=== PATIENT | male | born 2000 | race African-American/Black ===

== ENCOUNTER 2019-07-13 16:19 | Emergency (ER) | payer OTHER ==
[2019-07-13 16:35] VITALS: BP 146/75
[2019-07-13] MEDS ORDERED: CYCLOBENZAPRINE 10 MG TABLET PO STA (16:42)
[2019-07-13] MEDS ORDERED: IBUPROFEN 800 MG TABLET PO STA (16:42)
--- NOTE | 2019-07-13 16:44 | ED Physician Documentation ---
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 He felt some soreness in the left upper back and then started stretching it when it became severe. It is near the left scapula, nonradiating. There is no associated chest pain or trouble breathing. It hurts if he moves and is not too bad at rest. He is never had this before.) Review of Systems Constitutional: reports: Reviewed and negative Cardiac: reports: Reviewed and negative Respiratory: reports: Reviewed and negative PD PAST MEDICAL HISTORY - Present Medications Home Medications: Ambulatory Orders Medication Instructions Recorded Confirmed Cyclobenzaprine [Flexeril] 10 mg PO TID PRN #20 tablet 07/13/19 Ibuprofen [Motrin] 800 mg PO Q8H PRN #30 tablet 07/13/19 - Allergies Allergies/Adverse Reactions: Allergies Allergy/AdvReac Type Severity Reaction Status Date / Time No Known Drug Allergies Allergy Verified 07/13/19 16:35 PD ED PE NORMAL - Vitals Vital signs reviewed: Yes - General General: Alert and oriented X 3, No acute distress - HEENT HEENT: PERRL, EOMI - Neck Neck: Supple, no meningeal sign, No bony TTP - Cardiac Cardiac: RRR, No murmur - Respiratory Respiratory: No respiratory distress, Clear bilaterally, Other (He has significant and easily reproducible muscular spasm in the left parathoracic area medial to the scapula. There is also mild tenderness if I squeeze his ribs laterally.) - Abdomen Abdomen: Non tender - Extremities Extremities: No edema, No calf tenderness / cord - Neuro Neuro: Alert and oriented X 3, Normal speech Results - Vitals Vitals: Vital Signs - 24 hr 07/13/19 16:33 Temperature 36.4 C L Heart Rate 63 Respiratory 19 Rate Blood Pressure 146/75 H O2 Saturation 100 Oxygen O2 Source Room air PD MEDICAL DECISION MAKING - ED course ED course: This is a young man with muscle spasm of the back. It is easily reproducible matching his pain which clinically makes other more severe diagnoses such as PE, pneumonia, atypical angina, dissection etc. exceedingly unlikely. Departure - Departure Disposition: 01 Home, Self Care Clinical Impression: Back muscle spasm Condition: Good Record reviewed to determine appropriate education?: Yes Instructions: ED Spasm Back No Trauma Prescriptions: Cyclobenzaprine [Flexeril] 10 mg PO TID PRN #20 tablet PRN Reason: Spasms Ibuprofen [Motrin] 800 mg PO Q8H PRN #30 tablet PRN Reason: PAIN &/OR FEVER Comments: Return if worse or if not better in the next couple of days. Or if any new symptoms develop or worsen. [place] Forms: Activity restrictions
== END 2019-07-13 16:57 | disposition home or self-care (01) ==
LOC: ED 16:19
DX: M62.830 Muscle spasm of back (principal); M54.6 Pain in thoracic spine
CPT/HCPCS: 99282; 99284; A9270

== ENCOUNTER 2021-07-16 14:42 | Outpatient (CLI) | payer OTHER | END 2021-07-16 14:43 | disposition EMS.NT | LOC: EMS 14:42 | DX: R00.0 Tachycardia, unspecified (principal) ==

== ENCOUNTER 2021-07-16 15:41 | Emergency (ER) | payer OTHER ==
--- NOTE | 2021-07-16 15:44 | ED Physician Documentation ---
PD HPI DYSPNEA - Stated complaint Stated Complaint: ABNORMAL EKG - History obtained from History obtained from: Patient, EMS - History of Present Illness Timing - onset: Unknown Timing - onset during: Rest (he went to [facility] primary care clinic for eval to have wisdom teeth removed. Getting routine exam and was noted to have high BP and tachycardia 110-120. ECG done and reading of subtle T wave abnormal anterior. Sent to ER by EMS. Patient did not feel heart fast, so unknown duration. Denies CP, dyspnea.) Timing - details: Other (unknown duration, as was not having symptoms. Found incidental on PCP exam.) Inciting event(s): Other (has just couple caffeinated drinks daily. Denies diet pills, weight loss meds, work out supplements, nor energy drinks. Denies recra tional stimulants (bath salts, etc). No recent weight loss nor gain. Otherwise feeling well. No exertional CP nor dyspnea.). No: URI, Immobilization/travel Worsened by: No: Exertion, Laying flat Associated symptoms: No: Fever, Cough, Hemoptysis, Wheezing, Bilateral edema, Anxiety Similar symptoms before: Has not had sx before (has been told that BP is borderline high in the past but not needing Rx.) Review of Systems Constitutional: denies: Fever, Chills Nose: denies: Rhinorrhea / runny nose, Congestion Throat: denies: Sore throat Cardiac: denies: Chest pain / pressure, Palpitations, Pedal edema, Calf pain Respiratory: denies: Dyspnea, Cough, Wheezing GI: denies: Abdominal Pain, Nausea, Vomiting, Diarrhea Skin: denies: Rash, Lesions Psychiatric: denies: Anxiety Endocrine: denies: Weight loss, Weight gain PD PAST MEDICAL HISTORY - Past Medical History Cardiovascular: None Respiratory: None Neuro: None Endocrine/Autoimmune: None - Past Surgical History Past Surgical History: No - Present Medications Home Medications: Ambulatory Orders Medication Instructions Recorded Confirmed Metoprolol Succinate [Toprol Xl] 25 mg PO DAILY #10 tablet 07/16/21 Naproxen 250 mg PO TID #21 tablet 07/16/21 - Allergies Allergies/Adverse Reactions: Allergies Allergy/AdvReac Type Severity Reaction Status Date / Time No Known Drug Allergies Allergy Verified 07/13/19 16:35 - Living Situation Living Arrangement: reports: At home - Social History Does the pt smoke?: No Smoking Status: Never smoker Does the pt have substance abuse?: No PD ED PE NORMAL - Vitals Vital signs reviewed: Yes - General General: Alert and oriented X 3, No acute distress, Well developed/nourished - HEENT HEENT: Pharynx benign - Neck Neck: Supple, no meningeal sign, No adenopathy - Cardiac Cardiac: No murmur, No gallop, No rub. No: RRR (tachycardic but regular, and has some variability 105-120, so not appearing to be flutter. ) - Respiratory Respiratory: No respiratory distress, Clear bilaterally - Abdomen Abdomen: Soft, Non tender - Derm Derm: Normal color, Warm and dry - Extremities Extremities: No tenderness to palpate, Normal ROM s pain, No edema, No calf tenderness / cord Results - Vitals Vitals: Vital Signs - 24 hr 07/16/21 07/16/21 15:49 17:02 Temperature 37.0 C Heart Rate 116 H 98 Respiratory 17 16 Rate Blood Pressure 167/109 H 133/85 H O2 Saturation 98 99 Oxygen O2 Source Room air - EKG (time done) on presentation Rhythm: Sinus tachycardia. No: Atrial flutter [place]: Normal Intervals: Normal ND Ischemia: Normal ST segments, ST elevation c/w repol (there is mild/subtle ST elevation V2-3 but not significant. No diffuse changes. ). No: ST elevation c/w ischemia, ST depression - Labs Labs: Laboratory Tests 07/16/21 07/16/21 07/16/21 16:11 16:11 16:11 WBC 5.6 RBC 4.61 L Hgb 15.2 Hct 44.4 MCV 96.3 H MCH 33.0 H MCHC 34.2 RDW 13.0 Plt Count 214 MPV 10.9 Neut # (Auto) 3.0 Lymph # (Auto) 1.8 Ev[place]eline # (Auto) 0.6 Eos # (Auto) 0.3 Baso # (Auto) 0.1 Absolute Nucleated RBC 0.00 Nucleated RBC % 0.0 Sodium 135 Potassium 3.7 Chloride 95 L Carbon Dioxide 30 Anion Gap 10.0 BUN 15 Creatinine 1.0 Estimated GFR (MDRD) 112 Glucose 313 H Calcium 9.8 Total Bilirubin 0.5 AST 156 H ALT 246 H Alkaline Phosphatase 118 Troponin I High Sens C-Reactive Protein 2.5 H B-Natriuretic Peptide 18 Total Protein 7.9 Albumin 4.0 Globulin 3.9 Albumin/Globulin Ratio 1.0 Lipase 31 TSH 07/16/21 07/16/21 16:11 16:11 WBC RBC Hgb Hct MCV MCH MCHC RDW Plt Count MPV Neut # (Auto) Lymph # (Auto) Evangeline # (Auto) Eos # (Auto) Baso # (Auto) Absolute Nucleated RBC Nucleated RBC % Sodium Potassium Chloride Carbon Dioxide Anion Gap BUN Creatinine Estimated GFR (MDRD) Glucose Calcium Total Bilirubin AST ALT Alkaline Phosphatase Troponin I High Sens 6.3 C-Reactive Protein B-Natriuretic Peptide Total Protein Albumin Globulin Albumin/Globulin Ratio Lipase TSH 3.54 - Rads (name of study) chest xray Radiology: Prelim report reviewed (no acute changes.), See rad report PD MEDICAL DECISION MAKING - ED course Complexity details: re-evaluated patient (labs good. I had given dose of Metoprolol for heart rate and BP. Both are improved reasonably. Not clear the cause. Can give NSAIDs considering pericarditis (tachycardia and subtle ECG changes) and beta kyle for symptoms. Short term Rx and f/u PCP. ), considered differential (initially could feel heart beats by palpating chest. So seemed hyperdynamic. consider stimulant use (caffeine), hyperthyroid, etc. But also consider mild pericarditis (worse with effusion I think would be hypodynamic, and same for myocarditis). Can check labs. ), d/w patient Departure - Departure Disposition: 01 Home, Self Care Clinical Impression: Atrial tachycardia determined by electrocardiography, Elevated blood pressure reading Condition: Stable Record reviewed to determine appropriate education?: Yes Follow-Up: [facility] [Provider Group] Prescriptions: Naproxen 250 mg PO TID #21 tablet Metoprolol Succinate [Toprol Xl] 25 mg PO DAILY #10 tablet Comments: Your EKG did show the fast heart rate with some mild irregularity of the T waves. It does not look like a injury pattern of the heart and your blood test did not show any signs of heart muscle injury. The rest of your blood tests are good without any signs of anemia, diabetes, thyroid disorder, electrolyte abnormality. Considerations could still be some mild inflammation around the heart called pericarditis which can lead to the fast heart rate though typically associated with chest pain or shortness of breath, which you do not have. Stimulants such as caffeine can cause the heart rate to be fast or 2. Decrease the amount of caffeine that you take, though it does not sound like you having excessive amount per se. [place] for recheck of your blood pressure and heart rate. I would suggest that they set you up with an outpatient ultrasound of the heart called an echocardiogram to evaluate heart valves etc. Return to the ER if you have chest pain, shortness of breath, lightheadedness, fever or other concerns. Light duty and activity for the next 2 days until follow-up. Forms: Activity restrictions Discharge Date/Time: 07/16/21 17:57
[2021-07-16] MEDS ORDERED: METOPROLOL 5 MG/5 ML VIAL IVP STA (16:03)
[2021-07-16 16:19] LABS: BASOPHILS # (AUTO) 0.1 10^3/uL (0.0-0.1); BASOPHILS % (AUTO) 0.9 %; EOSINOPHILS # (AUTO) 0.3 10^3/uL (0.0-0.7); EOSINOPHILS % (AUTO) 4.6 %; HCT - HEMATOCRIT 44.4 % (42.0-52.0); HGB - HEMOGLOBIN 15.2 g/dL (14.0-18.0); LYMPHOCYTES # (AUTO) 1.8 10^3/uL (1.5-3.5); LYMPHOCYTES % (AUTO) 31.5 %; MEAN CORPUSCULAR HGB CONC 34.2 g/dL (32.0-36.0); MEAN CORPUSCULAR VOLUME 96.3 fL (80.0-94.0); MEAN PLATELET VOLUME 10.9 fL (7.4-11.4); MONOCYTES # (AUTO) 0.6 10^3/uL (0.0-1.0); MONOCYTES % (AUTO) 9.8 %; NEUTROPHILS % (AUTO) 52.8 %; PLT - PLATELET COUNT 214 10^3/uL (130-450); RED BLOOD COUNT 4.61 10^6/uL (4.70-6.10); WHITE BLOOD COUNT 5.6 x10^3/uL (4.8-10.8)
--- NOTE | 2021-07-16 16:20 | XRAY Report ---
PROCEDURE: Chest 1 View X-Ray INDICATIONS: Chest Pain TECHNIQUE: One view of the chest was acquired. COMPARISON: None FINDINGS: Surgical changes and devices: None. Lungs and pleura: No pleural effusions or pneumothorax. Lungs are clear. Mediastinum: Mediastinal contours appear normal. Heart size is normal. Bones and chest wall: No suspicious bony lesions. Overlying soft tissues appear unremarkable. IMPRESSION: No acute cardiopulmonary pathology. Reviewed by: Bennie Sanchez MD on 07/16/2021 4:19 PM PDT Approved by: Bennie Sanchez MD on 07/16/2021 4:19 PM PDT Station ID: [id number]
[2021-07-16 16:36] LABS: BILIRUBIN,TOTAL 0.5 mg/dL (0.2-1.0); CALCIUM 9.8 mg/dL (8.5-10.3); CRP - C-REACTIVE PROTEIN 2.5 mg/dL (0-1.0); POTASSIUM 3.7 mmol/L (3.5-5.0); TOTAL PROTEIN 7.9 g/dL (6.7-8.2)
[2021-07-16 17:06] VITALS: BP 133/85
[2021-07-16] MEDS ORDERED: IBUPROFEN 600 MG TABLET PO STA (17:38)
== END 2021-07-16 17:57 | disposition home or self-care (01) ==
LOC: ED 15:41
DX: I47.1 Supraventricular tachycardia (principal); R03.0 Elevated blood-pressure reading, without diagnosis of hypertension
CPT/HCPCS: 36415; 71045; 80053; 83690; 83880; 84443; 84484; 85025; 86140; 93005; 96374; 99284; A9270

== ENCOUNTER 2021-08-03 13:13 | Inpatient (IN) | payer OTHER ==
--- NOTE | 2021-08-03 13:55 | XRAY Report ---
PROCEDURE: Chest 1 View X-Ray INDICATIONS: Chest Pain TECHNIQUE: One view of the chest was acquired. COMPARISON: CXR 07/16/2021. FINDINGS: Surgical changes and devices: None. Lungs and pleura: No pleural effusions or pneumothorax. Lungs are clear. Mediastinum: Mediastinal contours appear normal. Heart size is normal. Bones and chest wall: No suspicious bony lesions. Overlying soft tissues appear unremarkable. IMPRESSION: No acute cardiopulmonary abnormality. Reviewed by: Dennis Allan MD on 08/03/2021 12:54 PM VINNY Approved by: Dennis Allan MD on 08/03/2021 12:54 PM VINNY Station ID: [id number]
[2021-08-03 14:25] LABS: BASOPHILS # (AUTO) 0.1 10^3/uL (0.0-0.1); BASOPHILS % (AUTO) 1.2 %; EOSINOPHILS % (AUTO) 0.6 %; HCT - HEMATOCRIT 47.3 % (42.0-52.0); HGB - HEMOGLOBIN 16.7 g/dL (14.0-18.0); LYMPHOCYTES # (AUTO) 2.5 10^3/uL (1.5-3.5); LYMPHOCYTES % (AUTO) 34.5 %; MEAN CORPUSCULAR HEMOGLOBIN 32.2 pg (27.0-31.0); MEAN CORPUSCULAR HGB CONC 35.3 g/dL (32.0-36.0); MEAN CORPUSCULAR VOLUME 91.3 fL (80.0-94.0); MEAN PLATELET VOLUME 12.2 fL (7.4-11.4); MONOCYTES # (AUTO) 0.4 10^3/uL (0.0-1.0); MONOCYTES % (AUTO) 4.8 %; NEUTROPHILS # (AUTO) 4.3 10^3/uL (1.5-6.6); NEUTROPHILS % (AUTO) 58.6 %; PLT - PLATELET COUNT 351 10^3/uL (130-450); RED BLOOD COUNT 5.18 10^6/uL (4.70-6.10); RED CELL DISTRIBUTION WIDTH 12.1 % (12.0-15.0); WHITE BLOOD COUNT 7.3 x10^3/uL (4.8-10.8)
[2021-08-03 14:39] LABS: ALBUMIN 4.9 g/dL (3.2-5.5); ALBUMIN/GLOBULIN RATIO 1.3 (1.0-2.2); BILIRUBIN,TOTAL 0.9 mg/dL (0.2-1.0); CALCIUM 9.8 mg/dL (8.5-10.3); CREATININE 1.5 mg/dL (0.6-1.2); POTASSIUM 5.6 mmol/L (3.5-5.0); TOTAL PROTEIN 8.8 g/dL (6.7-8.2)
[2021-08-03] MEDS ORDERED: SODIUM CHLORIDE 0.9% 1,000 ML IV STA (14:47)
[2021-08-03] MEDS ORDERED: INSULIN REGULAR HUMAN 300 UNIT/3 ML VIAL IVP ONE (14:47)
[2021-08-03] MEDS ORDERED: INSULIN REGULAR HUMAN 100 UNIT/1 ML 10 ML MDV IVP STA (14:50)
--- NOTE | 2021-08-03 15:09 | ED Physician Documentation ---
History of Present Illness - Stated complaint Stated Complaint: SOA,FATIGUE - Chief complaint Chief Complaint: General - History obtained from History obtained from: Patient - Additonal information Additional information: Patient comes emergency department chief complaint of fatigue, nausea, polydipsia and polyuria For about the last 2 weeks. Patient was seen in our department at the end of June for a sense of pounding heart and was diagnosed with hypertension. He states that since then, he has just felt increasingly fatigued. It does appear that at that time his sugar was 313, but we do not have any prior records to compare. No history of diabetes personally, and patient states that only his grandma has diabetes that he knows of. No fevers or chills. No shortness of breath or chest pain. No other complaints at this time. Review of Systems Ten Systems: 10 systems reviewed and negative Constitutional: reports: Fatigue, Weight Loss (24 pounds in last 2 weeks). denies: Fever, Chills Eyes: reports: Reviewed and negative Ears: reports: Reviewed and negative Nose: reports: Reviewed and negative Throat: reports: Reviewed and negative Cardiac: reports: Palpitations Respiratory: reports: Reviewed and negative GI: reports: Nausea : reports: Reviewed and negative Skin: reports: Reviewed and negative Musculoskeletal: reports: Reviewed and negative Neurologic: reports: Reviewed and negative Psychiatric: reports: Reviewed and negative Endocrine: reports: Reviewed and negative Immunocompromised: reports: Reviewed and negative PD PAST MEDICAL HISTORY - Past Medical History Cardiovascular: None Respiratory: None Neuro: None Endocrine/Autoimmune: None - Past Surgical History Past Surgical History: No - Present Medications Home Medications: Ambulatory Orders Medication Instructions Recorded Confirmed Lisinopril [Zestril] 10 mg PO DAILY 08/04/21 08/04/21 - Allergies Allergies/Adverse Reactions: Allergies Allergy/AdvReac Type Severity Reaction Status Date / Time No Known Drug Allergies Allergy Verified 08/03/21 13:19 - Social History Does the pt smoke?: No Smoking Status: Never smoker Does the pt have substance abuse?: No PD ED PE NORMAL - Vitals Vital signs reviewed: Yes - General General: Alert and oriented X 3, No acute distress, Well developed/nourished, Other (Patient appears moderately uncomfortable but otherwise no apparent distress.) - HEENT HEENT: Atraumatic, PERRL, EOMI, Moist mucous membranes - Neck Neck: Supple, no meningeal sign - Cardiac Cardiac: No murmur, Strong equal pulses, Other (Tachycardic, regular rhythm.) - Respiratory Respiratory: No respiratory distress, Clear bilaterally - Abdomen Abdomen: Soft, Non tender, Non distended - Derm Derm: Normal color, Warm and dry, No rash - Extremities Extremities: No deformity, No edema - Neuro Neuro: Alert and oriented X 3, labor and delivery nurse 2-12 intact, Normal speech - Psych Psych: Normal mood, Normal affect Results - Vitals Vitals: Oxygen O2 Source Room air - Labs Labs: Laboratory Tests 08/03/21 08/03/21 08/03/21 14:16 14:16 14:16 WBC 7.3 RBC 5.18 Hgb 16.7 Hct 47.3 MCV 91.3 MCH 32.2 H MCHC 35.3 RDW 12.1 Plt Count 351 MPV 12.2 H Neut # (Auto) 4.3 Lymph # (Auto) 2.5 [place] # (Auto) 0.4 Eos # (Auto) 0.0 Baso # (Auto) 0.1 Absolute Nucleated RBC 0.00 Nucleated RBC % 0.0 VBG pH VBG pCO2 VBG pO2 VBG HCO3 VBG Total CO2 VBG O2 Saturation VBG Base Excess Sodium 121 L Potassium 5.6 H Chloride 83 L Carbon Dioxide 17 L Anion Gap 21.0 H BUN 23 H Creatinine 1.5 H Estimated GFR (MDRD) 70 L Glucose 769 H* Estimat Average Glucose Hemoglobin A1c % Calcium 9.8 Total Bilirubin 0.9 AST 49 H ALT 117 H Alkaline Phosphatase 122 H Troponin I High Sens 6.8 B-Natriuretic Peptide Total Protein 8.8 H Albumin 4.9 Globulin 3.9 Albumin/Globulin Ratio 1.3 Lipase 46 Urine Color Urine Clarity Urine pH Ur Specific [place] Urine Protein Urine Glucose (UA) Urine Ketones Urine Occult Blood Urine Nitrite Urine Bilirubin Urine Urobilinogen Ur Leukocyte Esterase Urine RBC Urine WBC Ur Squamous Epith Cells Urine Bacteria Ur Microscopic Review Urine Culture Comments Urine Opiates Screen Ur Oxycodone Screen Urine Methadone Screen Ur Propoxyphene Screen Ur Barbiturates Screen Ur Tricyclics Screen Ur Phencyclidine Scrn Ur Amphetamine Screen U Methamphetamines Scrn U Benzodiazepines Scrn Urine Cocaine Screen U Cannabinoids Screen Serum Ketones 08/03/21 08/03/21 08/03/21 14:16 14:16 14:16 WBC RBC Hgb Hct MCV MCH MCHC RDW Plt Count MPV Neut # (Auto) Lymph # (Auto) [place] # (Auto) Eos # (Auto) Baso # (Auto) Absolute Nucleated RBC Nucleated RBC % VBG pH VBG pCO2 VBG pO2 VBG HCO3 VBG Total CO2 VBG O2 Saturation VBG Base Excess Sodium Potassium Chloride Carbon Dioxide Anion Gap BUN Creatinine Estimated GFR (MDRD) Glucose Estimat Average Glucose 298 H Hemoglobin A1c % 12.0 H Calcium Total Bilirubin AST ALT Alkaline Phosphatase Troponin I High Sens B-Natriuretic Peptide 24 Total Protein Albumin Globulin Albumin/Globulin Ratio Lipase Urine Color Urine Clarity Urine pH Ur Specific [place] Urine Protein Urine Glucose (UA) Urine Ketones Urine Occult Blood Urine Nitrite Urine Bilirubin Urine Urobilinogen Ur Leukocyte Esterase Urine RBC Urine WBC Ur Squamous Epith Cells Urine Bacteria Ur Microscopic Review Urine Culture Comments Urine Opiates Screen Ur Oxycodone Screen Urine Methadone Screen Ur Propoxyphene Screen Ur Barbiturates Screen Ur Tricyclics Screen Ur Phencyclidine Scrn Ur Amphetamine Screen U Methamphetamines Scrn U Benzodiazepines Scrn Urine Cocaine Screen U Cannabinoids Screen Serum Ketones SMALL H 08/03/21 08/03/21 15:25 15:30 WBC RBC Hgb Hct MCV MCH MCHC RDW Plt Count MPV Neut # (Auto) Lymph # (Auto) [place] # (Auto) Eos # (Auto) Baso # (Auto) Absolute Nucleated RBC Nucleated RBC % VBG pH 7.230 L VBG pCO2 42.9 VBG pO2 35.8 VBG HCO3 17.6 L VBG Total CO2 18.9 L VBG O2 Saturation 62.8 VBG Base Excess -9.7 L Sodium Potassium Chloride Carbon Dioxide Anion Gap BUN Creatinine Estimated GFR (MDRD) Glucose Estimat Average Glucose Hemoglobin A1c % Calcium Total Bilirubin AST ALT Alkaline Phosphatase Troponin I High Sens B-Natriuretic Peptide Total Protein Albumin Globulin Albumin/Globulin Ratio Lipase Urine Color YELLOW Urine Clarity CLEAR Urine pH 5.5 Ur Specific [place] 1.010 Urine Protein 30 H Urine Glucose (UA) >=1000 H Urine Ketones 15 H Urine Occult Blood MODERATE H Urine Nitrite NEGATIVE Urine Bilirubin NEGATIVE Urine Urobilinogen 0.2 (NORMAL) Ur Leukocyte Esterase NEGATIVE Urine RBC 0-5 Urine WBC 0-3 Ur Squamous Epith Cells NONE SEEN Urine Bacteria None Seen Ur Microscopic Review INDICATED Urine Culture Comments NOT INDICATED Urine Opiates Screen NEGATIVE Ur Oxycodone Screen NEGATIVE Urine Methadone Screen NEGATIVE Ur Propoxyphene Screen NEGATIVE Ur Barbiturates Screen NEGATIVE Ur Tricyclics Screen NEGATIVE Ur Phencyclidine Scrn NEGATIVE Ur Amphetamine Screen NEGATIVE U Methamphetamines Scrn NEGATIVE U Benzodiazepines Scrn NEGATIVE Urine Cocaine Screen NEGATIVE U Cannabinoids Screen NEGATIVE Serum Ketones Procedures - General procedure General procedure: Peripheral IV placed via ultrasound by ED. PD MEDICAL DECISION MAKING - ED course Complexity details: reviewed results, re-evaluated patient, considered differential, d/w patient ED course: The patient was worked up with labs, and found to have a blood sugar of 769. His potassium was 5.0. Anion gap was 21. Patient was started on IV fluids and an insulin drip. I spoke with Dr. Grissom, who did agree to an inpatient to her service. - Critical Care Time(min): 30 Comments: Critical care time was necessary, due to acute metabolic emergency in the form of diabetic ketoacidosis, and severe hyperglycemia, to prevent imminent and life-threatening decline. Time Includes: Direct patient care, Review records, Reassess patient, Document care, Coordinate care, Medical consult, See progress note Data interpretation: Labs, ABG, Cardiac output, See progress note Procedures included in critical care time: Peripheral IV, See progress note Departure - Departure Disposition: 66 [facility] DC/Xfer Clinical Impression: Diabetes mellitus, new onset Diabetic ketoacidosis Qualifiers: Diabetes mellitus type: type 1 Diabetes mellitus complication detail: without coma Qualified Code(s): E10.10 - Type 1 diabetes mellitus with ketoacidosis without coma Condition: Critical Discharge Date/Time: 08/03/21 18:20
[2021-08-03] MEDS ORDERED: INSULIN REGULAR HUMAN 100 UNIT in SODIUM CHLORIDE 0.9% 100ML 99 ML IV STA ×2 (15:37→15:43)
[2021-08-03 15:41] LABS: VBG BASE EXCESS -9.7 mmol/L (-2 - +2); VBG HCO3 17.6 mmol/L (23-28); VBG OXYGEN SATURATION 62.8 % (60-80); VBG PCO2 42.9 mmHg (41-51); VBG PH 7.23 (7.31-7.41); VBG PO2 35.8 mmHg (25-47); VBG TOTAL CO2 18.9 mmol/L (24-29)
[2021-08-03] MEDS ORDERED: ACETAMINOPHEN 325 MG TABLET PO PRN (16:02)
[2021-08-03] MEDS ORDERED: PROCHLORPERAZINE 10 MG/2 ML VIAL IVP PRN (16:02)
[2021-08-03] MEDS ORDERED: ONDANSETRON ODT 4 MG TABLET TL PRN (16:02)
[2021-08-03] MEDS ORDERED: SODIUM CHLORIDE FLUSH 0.9% 10 ML SYRINGE IVP PRN (16:02)
--- NOTE | 2021-08-03 16:12 | HISTORY & PHYSICAL EXAMINATION ---
Chief Complaint - Chief Complaint Chief Complaint: Polydypsia, polyuria, weight loss History of Present Illness - Admitted From Admitted From:: ED - History Obtained From History obtained from: ED provider and the patient - History of Present Illness HPI Comment/Other: This is a 21-year-old black male who has a history of recently diagnosed hypertension when he presented to the ED complaining of "strong palpitations", one month ago. At that time serum glucose level was noted to be 313 on lab work. Patient has subsequently had 2 weeks of polyuria, polydipsia, fatigue, claims he has a 24 pound weight loss and because of feeling overall poor he presented to the ED today. He is found to have serum glucose of 679, pH of 7.2, positive serum ketones, elevated anion gap and is being admitted to the ICU for DKA and new onset Type 1 diabetes. History - Past Medical History Cardiovascular: reports: Hypertension (Dx 1 mo ago, he is on Metoprolol) Respiratory: reports: None Neuro: reports: None Endocrine/Autoimmune: reports: None MRSA Hx?: No - Family & Social History Living arrangement: At home Meds/Allgy - Home Medications Home Medications: Ambulatory Orders Medication Instructions Recorded Confirmed Metoprolol Succinate [Toprol Xl] 25 mg PO DAILY #10 tablet 07/16/21 Naproxen 250 mg PO TID #21 tablet 07/16/21 - Allergies Allergies/Adverse Reactions: Allergies Allergy/AdvReac Type Severity Reaction Status Date / Time No Known Drug Allergies Allergy Verified 08/03/21 13:19 Review of Systems - Constitutional Constitutional: reports: Weight loss (24 lbs in 2 weeks) - Gastrointestinal Gastrointestinal: reports: Nausea - All Other Systems All Other Systems: reports: Reviewed and negative Exam - Vital Signs Vital Signs: Vital Signs x48h Temp Pulse Resp BP Pulse Ox 08/03/21 13:19 36.5 C 110 H 16 170/100 H 98 Conclusion/Plan - Problem List (1) Diabetic ketoacidosis Qualifiers: Diabetes mellitus type: type 1 Diabetes mellitus complication detail: without coma Qualified Code(s): E10.10 - Type 1 diabetes mellitus with ketoacidosis without coma - Lab Results Fish Bones: 08/03/21 14:16 08/03/21 14:16
[2021-08-03 16:19] LABS: MUDS CUTOFF CONCENTRATIONS CUTOFF CONC BELOW:
[2021-08-03 16:21] LABS: BILIRUBIN,URINE NEGATIVE (NEGATIVE); GLUCOSE, URINE (UA) >=1000 mg/dL (NEGATIVE); KETONES,URINE (UA) 15 mg/dL (NEGATIVE); LEUKOCYTE ESTERASE, URINE NEGATIVE (NEGATIVE); NITRITE,URINE NEGATIVE (NEGATIVE); OCCULT BLOOD,URINE MODERATE (NEGATIVE); PH,URINE 5.5 PH (5.0-7.5); PROTEIN,URINE 30 mg/dL (NEGATIVE); UROBILINOGEN,URINE 0.2 (NORMAL) E.U./dL (NORMAL)
[2021-08-03 16:23] LABS: CLARITY,URINE CLEAR (CLEAR)
[2021-08-03 16:26] LABS: VBG BASE EXCESS -9.3 mmol/L (-2 - +2); VBG HCO3 17.8 mmol/L (23-28); VBG OXYGEN SATURATION 42.5 % (60-80); VBG PCO2 42.9 mmHg (41-51); VBG PH 7.236 (7.31-7.41); VBG PO2 25.6 mmHg (25-47); VBG TOTAL CO2 19.1 mmol/L (24-29)
[2021-08-03 16:30] LABS: BACTERIA,URINE None Seen /HPF (None Seen); RBC,URINE 0-5 /HPF (0-5); SQUAMOUS EPITHELIAL CELL,UR NONE SEEN (<= Few); WBC,URINE 0-3 /HPF (0-3)
[2021-08-03 16:31] LABS: AMPHETAMINE SCREEN,URINE NEGATIVE (NEGATIVE); BARBITURATE SCREEN,UR NEGATIVE (NEGATIVE); BENZODIAZEPINES SCREEN, URINE NEGATIVE (NEGATIVE); COCAINE SCREEN URINE NEGATIVE (NEGATIVE); METHADONE SCREEN, URINE NEGATIVE (NEGATIVE); METHAMPHETAMINES SCREEN, URINE NEGATIVE (NEGATIVE); OPIATE SCREEN, URINE NEGATIVE (NEGATIVE); OXYCODONE SCREEN, URINE NEGATIVE (NEGATIVE); PROPOXYPHENE SCREEN, URINE NEGATIVE (NEGATIVE); THC CANNABINOID SCREEN, URINE NEGATIVE (NEGATIVE); TRICYCLIC ANTIDEPRESSANT,URINE NEGATIVE (NEGATIVE)
[2021-08-03 16:32] LABS: KETONES, SERUM (ACETEST) SMALL (NEGATIVE)
[2021-08-03 16:52] LABS: BUN - BLOOD UREA NITROGEN 25 mg/dL (6-20); CALCIUM 10.1 mg/dL (8.5-10.3); CARBON DIOXIDE - CO2 19 mmol/L (21-32); CHLORIDE 88 mmol/L (101-111); CREATININE 1.5 mg/dL (0.6-1.2); ETOH - ETHANOL < 5.0 mg/dL; GFR - MDRD 70 (>89); MAGNESIUM 2.6 mg/dL (1.7-2.8); POTASSIUM 4.9 mmol/L (3.5-5.0); SODIUM 127 mmol/L (135-145)
[2021-08-03 16:54] LABS: GLUCOSE 610 mg/dL (70-100)
[2021-08-03 17:29] LABS: KETONES, SERUM (ACETEST) SMALL (NEGATIVE)
[2021-08-03 17:30] LABS: B. PARAPERTUSSIS- RESP PCR PAN NOT DETECTED; B. PERTUSSIS- RESP PCR PANEL NOT DETECTED; C. PNEUMONIAE- RESP PCR PANEL NOT DETECTED; CORONAVIRUS 229E-RESP PCR NOT DETECTED; CORONAVIRUS HKU1-RESP PCR NOT DETECTED; CORONAVIRUS NL63-RESP PCR NOT DETECTED; CORONAVIRUS OC43-RESP PCR NOT DETECTED; HUMAN METAPNEUMOVIRUS NOT DETECTED; INFLUENZA A- RESP PCR PANEL NOT DETECTED; INFLUENZA B - RESP PCR PANEL NOT DETECTED; M. PNEUMONIAE- RESP PCR PANEL NOT DETECTED; PARAINFLUENZA VIRUS 1 NOT DETECTED; PARAINFLUENZA VIRUS 2 NOT DETECTED; PARAINFLUENZA VIRUS 3 NOT DETECTED; PARAINFLUENZA VIRUS 4 NOT DETECTED; RHINOVIRUS/ENTEROVIRUS NOT DETECTED; RSV- RESP PCR PANEL NOT DETECTED; SARS-CoV-2 -RESP PCR PANEL NOT DETECTED
[2021-08-03 17:33] LABS: BUN - BLOOD UREA NITROGEN 22 mg/dL (6-20); CALCIUM 9.6 mg/dL (8.5-10.3); CARBON DIOXIDE - CO2 19 mmol/L (21-32); CHLORIDE 92 mmol/L (101-111); CREATININE 1.5 mg/dL (0.6-1.2); GFR - MDRD 70 (>89); GLUCOSE 442 mg/dL (70-100); MAGNESIUM 2.5 mg/dL (1.7-2.8); POTASSIUM 3.9 mmol/L (3.5-5.0); SODIUM 129 mmol/L (135-145)
[2021-08-03] MEDS: SODIUM CHLORIDE 0.9% 1,000 ML IV SCH ×2 (17:56→22:57)
[2021-08-03 18:18] LABS: VBG BASE EXCESS -8.5 mmol/L (-2 - +2); VBG HCO3 18.1 mmol/L (23-28); VBG OXYGEN SATURATION 52.5 % (60-80); VBG PCO2 41.1 mmHg (41-51); VBG PH 7.261 (7.31-7.41); VBG PO2 29.9 mmHg (25-47); VBG TOTAL CO2 19.3 mmol/L (24-29)
--- NOTE | 2021-08-03 18:23 | ED Physician Documentation ---
ED Addendum - Addendum Addendum: 08/03/21 18:22 EKG performed at 1809. Rate 115, sinus tachycardia, normal CO interval. Normal QRS. LVH. Nonspecific T wave changes.
[2021-08-03 18:27] LABS: CALCIUM 9.6 mg/dL (8.5-10.3); CREATININE 1.4 mg/dL (0.6-1.2); POTASSIUM 3.6 mmol/L (3.5-5.0)
[2021-08-03 19:30] LABS: KETONES, SERUM (ACETEST) NEGATIVE (NEGATIVE)
[2021-08-03 19:33] LABS: BUN - BLOOD UREA NITROGEN 21 mg/dL (6-20); CALCIUM 9.5 mg/dL (8.5-10.3); CARBON DIOXIDE - CO2 20 mmol/L (21-32); CHLORIDE 94 mmol/L (101-111); CREATININE 1.3 mg/dL (0.6-1.2); GFR - MDRD 83 (>89); GLUCOSE 302 mg/dL (70-100); MAGNESIUM 2.4 mg/dL (1.7-2.8); POTASSIUM 3.4 mmol/L (3.5-5.0); SODIUM 132 mmol/L (135-145)
[2021-08-03] MEDS ORDERED: amLODIPine 5 MG TABLET PO SCH ×2 (19:45→21:00)
[2021-08-03] MEDS: INSULIN REGULAR HUMAN 100 UNIT in SODIUM CHLORIDE 0.9% 100ML 99 ML IV SCH ×2 (19:54→23:44)
[2021-08-03 20:33] LABS: ESTIMATED AVERAGE GLUCOSE 298 mg/dL (70-100)
[2021-08-03] MEDS ORDERED: amLODIPine 5 MG TABLET ONE (20:54)
[2021-08-03] MEDS ORDERED: POTASSIUM CHLOR 10 MEQ/100 ML 20 MEQ/200 ML BAG IV ONE (20:54)
[2021-08-03] MEDS: FAMOTIDINE 20 MG/2 ML VIAL IVP SCH (20:55)
[2021-08-03] MEDS: POTASSIUM CHLOR 10 MEQ/100 ML 10 MEQ/100 ML BAG IV SCH ×2 (20:56→22:01)
[2021-08-03] MEDS ORDERED: amLODIPine 5 MG TABLET PO ONE (21:00)
--- NOTE | 2021-08-03 21:46 | HISTORY & PHYSICAL EXAMINATION ---
History and Physical - History and Physical Chief complaint: Multiple complaints including weakness, polyuria, polydipsia, weight loss Source of history: Patient provided history. In addition, medical records reviewed. History of present illness: Mr. Coronel is a 21-year-old black male with no significant past medical history except for recently diagnosed hypertension. He had an ER visit on July 16, 2021 at which time he was seen for palpitations and was evaluated for abnormal EKG. The context was that he had a dental procedure, in the office he was found hypertensive and tachycardic, therefore he was sent to the ER for evaluation. At the ER his EKG had nonspecific changes, not suggestive of cardiac ischemia. He however was found tachycardic therefore was given metoprolol and for the presumed diagnosis of pericarditis he was also given NSAID. Was recommended close outpatient follow-up and cardiDuring that visit blood glucose was around 300 but there was no other significant laboratory abnormality. Subsequently the patient followed up at the [facility]; for hypertension he was started on lisinopril. No further work-up, lab work or cardiac testing was ordered or planned. The patient presented back to the ER on the morning of August 03 complaining of generalized weakness/fatigue to the point that he had difficulty ambulating, developed dyspnea on exertion. He reported being thirsty all the time and drinking at least a gallon of water; he also complained of polyuria and weight loss. He lost about 20 pounds during the past 2 weeks. Occasionally he was nauseous and had a few episodes of emesis. At the ER he was found tachycardic and hypertensive. Work-up was consistent with severe hyperglycemia and diabetic ketoacidosis. Past medical history: Recently diagnosed hypertension for which lisinopril was started as outpatient Outpatient medications: Lisinopril 20 mg daily Allergies Allergy/AdvReac Type Severity Reaction Status Date / Time No Known Drug Allergies Allergy Verified 08/03/21 13:19 Family history: Grandmother had type 2 diabetes, no history of type 1 diabetes in first-degree family members. Patient does not recall chronic medical illnesses in first-degree family members. Social history and functional status: Patient is in the [employer], active duty. He is a fully functional adult. He sometimes vapes, does not smoke regularly. He denies drug use. CODE STATUS: Full code Review of symptoms: 12 point review done, pertinent positives and negatives listed above at history present illness, there was no additional positive. Vital Signs - 24 hr 08/03/21 08/03/21 08/03/21 13:19 16:33 17:57 Temperature 36.5 C Heart Rate 110 H 110 H 116 H Heart Rate [ Monitoring electrodes] Respiratory 16 19 20 Rate Blood Pressure 170/100 H 134/72 H 127/91 H Blood Pressure [Left Brachial artery] O2 Saturation 98 95 99 08/03/21 08/03/21 08/03/21 18:38 19:00 21:00 Temperature Heart Rate Heart Rate [ 130 H 106 H 114 H Monitoring electrodes] Respiratory 17 19 20 Rate Blood Pressure Blood Pressure 148/106 H 159/113 H 136/111 H [Left Brachial artery] O2 Saturation 97 100 93 Physical exam: General: The patient is a well-developed young male, with sweet acetone smell of his breath. Not in distress. Respiratory: No increased work of breathing, clear to auscultation bilaterally without wheezes or crackles. CVS: S1, S2, Regular tachycardia, no murmur rub or gallop. Abdomen: Benign abdomen, bowel tones present, nontender, nondistended. Neurologic: Alert, oriented; no focal lateralizing sign. Psych: Cooperative. Lymph: No pitting pedal edema. Skin: No pallor. Musculoskeltal: Without trauma. Laboratory Tests 08/03/21 08/03/21 08/03/21 14:16 14:16 14:16 WBC 7.3 RBC 5.18 Hgb 16.7 Hct 47.3 MCV 91.3 MCH 32.2 H MCHC 35.3 RDW 12.1 Plt Count 351 MPV 12.2 H Neut # (Auto) 4.3 Lymph # (Auto) 2.5 [place] # (Auto) 0.4 Eos # (Auto) 0.0 Baso # (Auto) 0.1 Absolute Nucleated RBC 0.00 Nucleated RBC % 0.0 VBG pH VBG pCO2 VBG pO2 VBG HCO3 VBG Total CO2 VBG O2 Saturation VBG Base Excess Sodium 121 L Potassium 5.6 H Chloride 83 L Carbon Dioxide 17 L Anion Gap 21.0 H BUN 23 H Creatinine 1.5 H Estimated GFR (MDRD) 70 L Glucose 769 H* POC Whole Bld Glucose Estimat Average Glucose Hemoglobin A1c % Calcium 9.8 Magnesium Total Bilirubin 0.9 AST 49 H ALT 117 H Alkaline Phosphatase 122 H Troponin I High Sens 6.8 B-Natriuretic Peptide Total Protein 8.8 H Albumin 4.9 Globulin 3.9 Albumin/Globulin Ratio 1.3 Lipase 46 TSH Urine Color Urine Clarity Urine pH Ur Specific [place] Urine Protein Urine Glucose (UA) Urine Ketones Urine Occult Blood Urine Nitrite Urine Bilirubin Urine Urobilinogen Ur Leukocyte Esterase Urine RBC Urine WBC Ur Squamous Epith Cells Urine Bacteria Ur Microscopic Review Urine Culture Comments Nasal Adenovirus (PCR) Nasal B. parapertussis DNA (PCR) Nasal Coronavir 229E PCR Nasal Coronavir HKU1 PCR Nasal Coronavir NL63 PCR Nasal Coronavir OC43 PCR Nasal Enterovir/Rhinovir PCR Nasal Influenza B PCR Nasal Influenza A PCR Nasal Parainfluen 1 PCR Nasal Parainfluen 2 PCR Nasal Parainfluen 3 PCR Nasal Parainfluen 4 PCR Nasal RSV (PCR) Nasal Screen MRSA (PCR) Nasal B.pertussis DNA PCR Nasal C.pneumoniae (PCR) [place] Human Metapneumo PCR Nasal M.pneumoniae (PCR) Nasal SARS-CoV-2 (PCR) Urine Opiates Screen Ur Oxycodone Screen Urine Methadone Screen Ur Propoxyphene Screen Ur Barbiturates Screen Ur Tricyclics Screen Ur Phencyclidine Scrn Ur Amphetamine Screen U Methamphetamines Scrn U Benzodiazepines Scrn Urine Cocaine Screen U Cannabinoids Screen Ethyl Alcohol Serum Ketones 08/03/21 08/03/21 08/03/21 14:16 14:16 14:16 WBC RBC Hgb Hct MCV MCH MCHC RDW Plt Count MPV Neut # (Auto) Lymph # (Auto) [place] # (Auto) Eos # (Auto) Baso # (Auto) Absolute Nucleated RBC Nucleated RBC % VBG pH VBG pCO2 VBG pO2 VBG HCO3 VBG Total CO2 VBG O2 Saturation VBG Base Excess Sodium Potassium Chloride Carbon Dioxide Anion Gap BUN Creatinine Estimated GFR (MDRD) Glucose POC Whole Bld Glucose Estimat Average Glucose 298 H Hemoglobin A1c % 12.0 H Calcium Magnesium Total Bilirubin AST ALT Alkaline Phosphatase Troponin I High Sens B-Natriuretic Peptide 24 Total Protein Albumin Globulin Albumin/Globulin Ratio Lipase TSH Urine Color Urine Clarity Urine pH Ur Specific [place] Urine Protein Urine Glucose (UA) Urine Ketones Urine Occult Blood Urine Nitrite Urine Bilirubin Urine Urobilinogen Ur Leukocyte Esterase Urine RBC Urine WBC Ur Squamous Epith Cells Urine Bacteria Ur Microscopic Review Urine Culture Comments Nasal Adenovirus (PCR) Nasal B. parapertussis DNA (PCR) Nasal Coronavir 229E PCR Nasal Coronavir HKU1 PCR Nasal Coronavir NL63 PCR Nasal Coronavir OC43 PCR Nasal Enterovir/Rhinovir PCR Nasal Influenza B PCR Nasal Influenza A PCR Nasal Parainfluen 1 PCR Nasal Parainfluen 2 PCR Nasal Parainfluen 3 PCR Nasal Parainfluen 4 PCR Nasal RSV (PCR) Nasal Screen MRSA (PCR) Nasal B.pertussis DNA PCR Nasal C.pneumoniae (PCR) [place] Human Metapneumo PCR Nasal M.pneumoniae (PCR) Nasal SARS-CoV-2 (PCR) Urine Opiates Screen Ur Oxycodone Screen Urine Methadone Screen Ur Propoxyphene Screen Ur Barbiturates Screen Ur Tricyclics Screen Ur Phencyclidine Scrn Ur Amphetamine Screen U Methamphetamines Scrn U Benzodiazepines Scrn Urine Cocaine Screen U Cannabinoids Screen Ethyl Alcohol Serum Ketones SMALL H 08/03/21 08/03/21 08/03/21 15:25 15:30 16:23 WBC RBC Hgb Hct MCV MCH MCHC RDW Plt Count MPV Neut # (Auto) Lymph # (Auto) [place] # (Auto) Eos # (Auto) Baso # (Auto) Absolute Nucleated RBC Nucleated RBC % VBG pH 7.230 L VBG pCO2 42.9 VBG pO2 35.8 VBG HCO3 17.6 L VBG Total CO2 18.9 L VBG O2 Saturation 62.8 VBG Base Excess -9.7 L Sodium 127 L Potassium 4.9 Chloride 88 L Carbon Dioxide 19 L Anion Gap 20.0 H BUN 25 H Creatinine 1.5 H Estimated GFR (MDRD) 70 L Glucose 610 H* POC Whole Bld Glucose Estimat Average Glucose Hemoglobin A1c % Calcium 10.1 Magnesium 2.6 Total Bilirubin AST ALT Alkaline Phosphatase Troponin I High Sens B-Natriuretic Peptide Total Protein Albumin Globulin Albumin/Globulin Ratio Lipase TSH Urine Color YELLOW Urine Clarity CLEAR Urine pH 5.5 Ur Specific [place] 1.010 Urine Protein 30 H Urine Glucose (UA) >=1000 H Urine Ketones 15 H Urine Occult Blood MODERATE H Urine Nitrite NEGATIVE Urine Bilirubin NEGATIVE Urine Urobilinogen 0.2 (NORMAL) Ur Leukocyte Esterase NEGATIVE Urine RBC 0-5 Urine WBC 0-3 Ur Squamous Epith Cells NONE SEEN Urine Bacteria None Seen Ur Microscopic Review INDICATED Urine Culture Comments NOT INDICATED Nasal Adenovirus (PCR) Nasal B. parapertussis DNA (PCR) Nasal Coronavir 229E PCR Nasal Coronavir HKU1 PCR Nasal Coronavir NL63 PCR Nasal Coronavir OC43 PCR Nasal Enterovir/Rhinovir PCR Nasal Influenza B PCR Nasal Influenza A PCR Nasal Parainfluen 1 PCR Nasal Parainfluen 2 PCR Nasal Parainfluen 3 PCR Nasal Parainfluen 4 PCR Nasal RSV (PCR) Nasal Screen MRSA (PCR) Nasal B.pertussis DNA PCR Nasal C.pneumoniae (PCR) [place] Human Metapneumo PCR Nasal M.pneumoniae (PCR) Nasal SARS-CoV-2 (PCR) Urine Opiates Screen NEGATIVE Ur Oxycodone Screen NEGATIVE Urine Methadone Screen NEGATIVE Ur Propoxyphene Screen NEGATIVE Ur Barbiturates Screen NEGATIVE Ur Tricyclics Screen NEGATIVE Ur Phencyclidine Scrn NEGATIVE Ur Amphetamine Screen NEGATIVE U Methamphetamines Scrn NEGATIVE U Benzodiazepines Scrn NEGATIVE Urine Cocaine Screen NEGATIVE U Cannabinoids Screen NEGATIVE Ethyl Alcohol < 5.0 Serum Ketones SMALL H 08/03/21 08/03/21 08/03/21 16:23 16:30 17:12 WBC RBC Hgb Hct MCV MCH MCHC RDW Plt Count MPV Neut # (Auto) Lymph # (Auto) [place] # (Auto) Eos # (Auto) Baso # (Auto) Absolute Nucleated RBC Nucleated RBC % VBG pH 7.236 L VBG pCO2 42.9 VBG pO2 25.6 VBG HCO3 17.8 L VBG Total CO2 19.1 L VBG O2 Saturation 42.5 L VBG Base Excess -9.3 L Sodium 129 L Potassium 3.9 Chloride 92 L Carbon Dioxide 19 L Anion Gap 18.0 H BUN 22 H Creatinine 1.5 H Estimated GFR (MDRD) 70 L Glucose 442 H POC Whole Bld Glucose Estimat Average Glucose Hemoglobin A1c % Calcium 9.6 Magnesium 2.5 Total Bilirubin AST ALT Alkaline Phosphatase Troponin I High Sens B-Natriuretic Peptide Total Protein Albumin Globulin Albumin/Globulin Ratio Lipase TSH Urine Color Urine Clarity Urine pH Ur Specific [place] Urine Protein Urine Glucose (UA) Urine Ketones Urine Occult Blood Urine Nitrite Urine Bilirubin Urine Urobilinogen Ur Leukocyte Esterase Urine RBC Urine WBC Ur Squamous Epith Cells Urine Bacteria Ur Microscopic Review Urine Culture Comments Nasal Adenovirus (PCR) NOT DETECTED Nasal B. parapertussis DNA (PCR) NOT DETECTED Nasal Coronavir 229E PCR NOT DETECTED Nasal Coronavir HKU1 PCR NOT DETECTED Nasal Coronavir NL63 PCR NOT DETECTED Nasal Coronavir OC43 PCR NOT DETECTED Nasal Enterovir/Rhinovir PCR NOT DETECTED Nasal Influenza B PCR NOT DETECTED Nasal Influenza A PCR NOT DETECTED Nasal Parainfluen 1 PCR NOT DETECTED Nasal Parainfluen 2 PCR NOT DETECTED Nasal Parainfluen 3 PCR NOT DETECTED Nasal Parainfluen 4 PCR NOT DETECTED Nasal RSV (PCR) NOT DETECTED Nasal Screen MRSA (PCR) Nasal B.pertussis DNA PCR NOT DETECTED Nasal C.pneumoniae (PCR) NOT DETECTED [place] Human Metapneumo PCR NOT DETECTED Nasal M.pneumoniae (PCR) NOT DETECTED Nasal SARS-CoV-2 (PCR) NOT DETECTED Urine Opiates Screen Ur Oxycodone Screen Urine Methadone Screen Ur Propoxyphene Screen Ur Barbiturates Screen Ur Tricyclics Screen Ur Phencyclidine Scrn Ur Amphetamine Screen U Methamphetamines Scrn U Benzodiazepines Scrn Urine Cocaine Screen U Cannabinoids Screen Ethyl Alcohol Serum Ketones SMALL H 08/03/21 08/03/21 08/03/21 18:14 18:14 18:42 WBC RBC Hgb Hct MCV MCH MCHC RDW Plt Count MPV Neut # (Auto) Lymph # (Auto) [place] # (Auto) Eos # (Auto) Baso # (Auto) Absolute Nucleated RBC Nucleated RBC % VBG pH 7.261 L VBG pCO2 41.1 VBG pO2 29.9 VBG HCO3 18.1 L VBG Total CO2 19.3 L VBG O2 Saturation 52.5 L VBG Base Excess -8.5 L Sodium 131 L Potassium 3.6 Chloride 94 L Carbon Dioxide 18 L Anion Gap 19.0 H BUN 22 H Creatinine 1.4 H Estimated GFR (MDRD) 76 L Glucose 384 H POC Whole Bld Glucose 319 H Estimat Average Glucose Hemoglobin A1c % Calcium 9.6 Magnesium Total Bilirubin AST ALT Alkaline Phosphatase Troponin I High Sens B-Natriuretic Peptide Total Protein Albumin Globulin Albumin/Globulin Ratio Lipase TSH Urine Color Urine Clarity Urine pH Ur Specific [place] Urine Protein Urine Glucose (UA) Urine Ketones Urine Occult Blood Urine Nitrite Urine Bilirubin Urine Urobilinogen Ur Leukocyte Esterase Urine RBC Urine WBC Ur Squamous Epith Cells Urine Bacteria Ur Microscopic Review Urine Culture Comments Nasal Adenovirus (PCR) Nasal B. parapertussis DNA (PCR) Nasal Coronavir 229E PCR Nasal Coronavir HKU1 PCR Nasal Coronavir NL63 PCR Nasal Coronavir OC43 PCR Nasal Enterovir/Rhinovir PCR Nasal Influenza B PCR Nasal Influenza A PCR Nasal Parainfluen 1 PCR Nasal Parainfluen 2 PCR Nasal Parainfluen 3 PCR Nasal Parainfluen 4 PCR Nasal RSV (PCR) Nasal Screen MRSA (PCR) Nasal B.pertussis DNA PCR Nasal C.pneumoniae (PCR) [place] Human Metapneumo PCR Nasal M.pneumoniae (PCR) Nasal SARS-CoV-2 (PCR) Urine Opiates Screen Ur Oxycodone Screen Urine Methadone Screen Ur Propoxyphene Screen Ur Barbiturates Screen Ur Tricyclics Screen Ur Phencyclidine Scrn Ur Amphetamine Screen U Methamphetamines Scrn U Benzodiazepines Scrn Urine Cocaine Screen U Cannabinoids Screen Ethyl Alcohol Serum Ketones 08/03/21 08/03/21 08/03/21 18:45 19:00 19:02 WBC RBC Hgb Hct MCV MCH MCHC RDW Plt Count MPV Neut # (Auto) Lymph # (Auto) [place] # (Auto) Eos # (Auto) Baso # (Auto) Absolute Nucleated RBC Nucleated RBC % VBG pH VBG pCO2 VBG pO2 VBG HCO3 VBG Total CO2 VBG O2 Saturation VBG Base Excess Sodium Potassium Chloride Carbon Dioxide Anion Gap BUN Creatinine Estimated GFR (MDRD) Glucose POC Whole Bld Glucose 268 H Estimat Average Glucose Hemoglobin A1c % Calcium Magnesium Total Bilirubin AST ALT Alkaline Phosphatase Troponin I High Sens B-Natriuretic Peptide Total Protein Albumin Globulin Albumin/Globulin Ratio Lipase TSH 5.34 Urine Color Urine Clarity Urine pH Ur Specific [place] Urine Protein Urine Glucose (UA) Urine Ketones Urine Occult Blood Urine Nitrite Urine Bilirubin Urine Urobilinogen Ur Leukocyte Esterase Urine RBC Urine WBC Ur Squamous Epith Cells Urine Bacteria Ur Microscopic Review Urine Culture Comments Nasal Adenovirus (PCR) Nasal B. parapertussis DNA (PCR) Nasal Coronavir 229E PCR Nasal Coronavir HKU1 PCR Nasal Coronavir NL63 PCR Nasal Coronavir OC43 PCR Nasal Enterovir/Rhinovir PCR Nasal Influenza B PCR Nasal Influenza A PCR Nasal Parainfluen 1 PCR Nasal Parainfluen 2 PCR Nasal Parainfluen 3 PCR Nasal Parainfluen 4 PCR Nasal RSV (PCR) Nasal Screen MRSA (PCR) NEGATIVE Nasal B.pertussis DNA PCR Nasal C.pneumoniae (PCR) [place] Human Metapneumo PCR Nasal M.pneumoniae (PCR) Nasal SARS-CoV-2 (PCR) Urine Opiates Screen Ur Oxycodone Screen Urine Methadone Screen Ur Propoxyphene Screen Ur Barbiturates Screen Ur Tricyclics Screen Ur Phencyclidine Scrn Ur Amphetamine Screen U Methamphetamines Scrn U Benzodiazepines Scrn Urine Cocaine Screen U Cannabinoids Screen Ethyl Alcohol Serum Ketones 08/03/21 08/03/21 08/03/21 19:18 19:50 20:57 WBC RBC Hgb Hct MCV MCH MCHC RDW Plt Count MPV Neut # (Auto) Lymph # (Auto) [place] # (Auto) Eos # (Auto) Baso # (Auto) Absolute Nucleated RBC Nucleated RBC % VBG pH VBG pCO2 VBG pO2 VBG HCO3 VBG Total CO2 VBG O2 Saturation VBG Base Excess Sodium 132 L Potassium 3.4 L Chloride 94 L Carbon Dioxide 20 L Anion Gap 18.0 H BUN 21 H Creatinine 1.3 H Estimated GFR (MDRD) 83 L Glucose 302 H POC Whole Bld Glucose 293 H 229 H Estimat Average Glucose Hemoglobin A1c % Calcium 9.5 Magnesium 2.4 Total Bilirubin AST ALT Alkaline Phosphatase Troponin I High Sens B-Natriuretic Peptide Total Protein Albumin Globulin Albumin/Globulin Ratio Lipase TSH Urine Color Urine Clarity Urine pH Ur Specific [place] Urine Protein Urine Glucose (UA) Urine Ketones Urine Occult Blood Urine Nitrite Urine Bilirubin Urine Urobilinogen Ur Leukocyte Esterase Urine RBC Urine WBC Ur Squamous Epith Cells Urine Bacteria Ur Microscopic Review Urine Culture Comments Nasal Adenovirus (PCR) Nasal B. parapertussis DNA (PCR) Nasal Coronavir 229E PCR Nasal Coronavir HKU1 PCR Nasal Coronavir NL63 PCR Nasal Coronavir OC43 PCR Nasal Enterovir/Rhinovir PCR Nasal Influenza B PCR Nasal Influenza A PCR Nasal Parainfluen 1 PCR Nasal Parainfluen 2 PCR Nasal Parainfluen 3 PCR Nasal Parainfluen 4 PCR Nasal RSV (PCR) Nasal Screen MRSA (PCR) Nasal B.pertussis DNA PCR Nasal C.pneumoniae (PCR) [place] Human Metapneumo PCR Nasal M.pneumoniae (PCR) Nasal SARS-CoV-2 (PCR) Urine Opiates Screen Ur Oxycodone Screen Urine Methadone Screen Ur Propoxyphene Screen Ur Barbiturates Screen Ur Tricyclics Screen Ur Phencyclidine Scrn Ur Amphetamine Screen U Methamphetamines Scrn U Benzodiazepines Scrn Urine Cocaine Screen U Cannabinoids Screen Ethyl Alcohol Serum Ketones NEGATIVE Imaging reviewed per electronic medical record Assessment and plan: Active issues/diagnoses Newly diagnosed diabetes /likely type I Diabetic ketoacidosis with blood glucose above 700 and gap over 21 Abnormal electrolytes in the setting of DKA including pseudohyponatremia and hypokalemia Acute kidney injury Weight loss secondary to uncontrolled diabetes Abnormal liver function tests Uncontrolled hypertension/recently diagnosed hypertension Tachycardia in the setting of DKA, dehydration, acute kidney injury Plan and orders: Admitted as inpatient to the ICU, critically ill with DKA, on insulin drip. Continue insulin drip and DKA protocol Electrolyte replacement Aggressive IV hydration Start amlodipine /per recent evidence more appropriate to treat hypertension even in diabetics than lisinopril (lisinopril would not be optimal with acute kidney injury) DVT prophylaxis with SCDs and pharmacologic /Encourage mobility to prevent deconditioning [facility]ists consult/diabetic teaching Patient education/discussed current work-up, diagnoses, prognosis, expected outpatient plan and need for close follow-up and continued diabetic management Regarding diagnosis of hypertension patient should have further outpatient work- up and continued care As patient had nonspecific EKG abnormalities he would benefit from outpatient echocardiogram Check lipid panel, TSH Further plan per clinical course Attestation: I certify that the patient meets inpatient criteria based on the admission diagnosis, and the above assessment, findings and plan; he is expected to be hospitalized for more than 48 hours however to discharge or transfer to other facility within less than 96 hours.
[2021-08-03] MEDS ORDERED: POTASSIUM CHLOR 10 MEQ/100 ML 10 MEQ/100 ML BAG IV ONE (23:35)
[2021-08-04] MEDS ORDERED: SODIUM CHLORIDE 0.9% 500 ML IV PRN (01:16)
[2021-08-04] MEDS: SODIUM CHLORIDE FLUSH 0.9% 10 ML SYRINGE IVP SCH ×4 (01:34→23:56)
[2021-08-04 01:45] LABS: MAGNESIUM 2.1 mg/dL (1.7-2.8); PHOSPHORUS 1.8 mg/dL (2.5-4.6); POTASSIUM 3.5 mmol/L (3.5-5.0)
[2021-08-04] MEDS ORDERED: POTASSIUM PHOSPHATE 15 MMOL in SODIUM CHLORIDE 0.9% 250 ML IV ONE ×2 (02:00→04:43)
[2021-08-04] MEDS ORDERED: D5NS W/20 MEQ KCL 1,000 ML IV SCH (02:00)
[2021-08-04] MEDS ORDERED: POTASSIUM CHLOR 10 MEQ/100 ML 10 MEQ/100 ML BAG IV ONE ×2 (02:30→04:26)
[2021-08-04] MEDS ORDERED: NEUTRA-PHOS 250 MG TABLET PO SCH ×2 (03:00→05:00)
[2021-08-04 04:04] LABS: BASOPHILS # (AUTO) 0.1 10^3/uL (0.0-0.1); BASOPHILS % (AUTO) 1.2 %; EOSINOPHILS # (AUTO) 0.2 10^3/uL (0.0-0.7); HCT - HEMATOCRIT 40.2 % (42.0-52.0); HGB - HEMOGLOBIN 14.4 g/dL (14.0-18.0); LYMPHOCYTES # (AUTO) 4.3 10^3/uL (1.5-3.5); LYMPHOCYTES % (AUTO) 61.8 %; MEAN CORPUSCULAR HEMOGLOBIN 32.3 pg (27.0-31.0); MEAN CORPUSCULAR HGB CONC 35.8 g/dL (32.0-36.0); MEAN CORPUSCULAR VOLUME 90.1 fL (80.0-94.0); MEAN PLATELET VOLUME 11.7 fL (7.4-11.4); MONOCYTES # (AUTO) 0.7 10^3/uL (0.0-1.0); MONOCYTES % (AUTO) 9.7 %; NEUTROPHILS # (AUTO) 1.7 10^3/uL (1.5-6.6); NEUTROPHILS % (AUTO) 24.3 %; PLT - PLATELET COUNT 241 10^3/uL (130-450); RED BLOOD COUNT 4.46 10^6/uL (4.70-6.10); RED CELL DISTRIBUTION WIDTH 11.9 % (12.0-15.0); WHITE BLOOD COUNT 6.9 x10^3/uL (4.8-10.8)
[2021-08-04 04:24] LABS: CALCIUM 8.7 mg/dL (8.5-10.3); POTASSIUM 3.5 mmol/L (3.5-5.0)
[2021-08-04 04:32] LABS: CHOL/HDL RATIO 10.3 (<5.0); CHOLESTEROL 289 mg/dL; HDL CHOLESTEROL 28 mg/dL; TRIGLYCERIDES 515 mg/dL
--- NOTE | 2021-08-04 05:04 | PROVIDER PROGRESS NOTE ---
Progress Note Chief complaint/Reason for hospital admission: Newly diagnosed diabetes/diabetic ketoacidosis Interval history: 21-year-old male was admitted last night with DKA and newly diagnosed diabetes. Overnight, patient has been on insulin drip and doing well. Morning laboratories show improving electrolytes, closing of the gap. This morning when I visited the patient he reported improving strength and feeling better in general. Assessment and plan: Active issues/diagnoses Newly diagnosed diabetes /likely type I/Hemoglobin A1c returned above 12 Diabetic ketoacidosis /Resolving, anion gap closing, patient will be ready to transfer to the medical floor in a few hours Abnormal electrolytes in the setting of DKA including pseudohyponatremia, hypophosphatemia and hypokalemia Acute kidney injury/Improving on IV hydration Dyslipidemia Weight loss secondary to uncontrolled diabetes Abnormal liver function tests Uncontrolled hypertension/recently diagnosed hypertension Tachycardia in the setting of DKA, dehydration, acute kidney injury/Improving Plan and orders: Admitted as inpatient to the ICU, critically ill with DKA. Overnight improved and in a few hours will be ready to transition off the insulin drip. Orders are written to stop the insulin drip, start insulin Lantus, moderate dose insulin sliding scale. When insulin drip started 1 dose of regular insulin subcutaneously will be given. IV fluid: Dextrose containing fluid will be stopped when insulin drip discontinued; as the patient is still tachycardic we will plan on giving normal saline bolus in the morning and subsequently will encourage oral fluid intake. Carb controlled diet. Electrolyte replacement per morning laboratories will include phosphorus and potassium replacement. Started on statin and aspirin. Continue amlodipine /per recent evidence more appropriate to treat hypertension even in diabetics than lisinopril (lisinopril would not be optimal with acute kidney injury) DVT prophylaxis with SCDs and pharmacologic /Encourage mobility to prevent deconditioning Plastics Tooling Engineer consult/diabetic teaching Patient education/discussed daily care plan, expected outpatient plan and need for close follow-up and continued diabetic management Regarding diagnosis of hypertension patient should have further outpatient work- up and continued care As patient had nonspecific EKG abnormalities he would benefit from outpatient echocardiogram Downgraded from ICU status to the medical floor. Disposition: Patient will transition from the insulin drip to long-acting insulin with nutritional coverage, if blood glucose remains stable he can likely be discharged within 24 hours. Prior to discharge he will need diabetic teaching, registered sales assistant consult and education and close outpatient follow-up plan. Physical exam: General: The patient is a well-developed young male. Not in distress. Respiratory: No increased work of breathing, clear to auscultation bilaterally without wheezes or crackles. CVS: S1, S2, Regular tachycardia, no murmur rub or gallop. Abdomen: Benign abdomen, bowel tones present, nontender, nondistended. Neurologic: Alert, oriented; no focal lateralizing sign. Psych: Cooperative. Lymph: No pitting pedal edema. Skin: No pallor. Musculoskeltal: Without trauma. Last Vital Signs Temp 37.0 C 08/03/21 23:29 Pulse 92 08/04/21 04:00 Resp 18 08/04/21 04:00 BP 144/85 H 08/04/21 04:00 Pulse Ox 99 08/04/21 04:00 Vital Signs Temp 37.0 C 08/03/21 23:29 Pulse 92 08/04/21 04:00 Resp 18 08/04/21 04:00 BP 144/85 H 08/04/21 04:00 Pulse Ox 99 08/04/21 04:00 Intake & Output 08/03/21 08/03/21 08/04/21 15:59 23:59 07:59 Intake Total 3782.534 1536.939 Output Total 150 250 Balance 3632.534 1286.939 Laboratory Last Values WBC 6.9 x10^3/uL (4.8-10.8) 08/04/21 03:57 RBC 4.46 10^6/uL (4.70-6.10) L 08/04/21 03:57 Hgb 14.4 g/dL (14.0-18.0) 08/04/21 03:57 Hct 40.2 % (42.0-52.0) L 08/04/21 03:57 MCV 90.1 fL (80.0-94.0) 08/04/21 03:57 MCH 32.3 pg (27.0-31.0) H 08/04/21 03:57 MCHC 35.8 g/dL (32.0-36.0) 08/04/21 03:57 RDW 11.9 % (12.0-15.0) L 08/04/21 03:57 Plt Count 241 10^3/uL (130-450) 08/04/21 03:57 MPV 11.7 fL (7.4-11.4) H 08/04/21 03:57 Neut # (Auto) 1.7 10^3/uL (1.5-6.6) 08/04/21 03:57 Lymph # (Auto) 4.3 10^3/uL (1.5-3.5) H 08/04/21 03:57 [place] # (Auto) 0.7 10^3/uL (0.0-1.0) 08/04/21 03:57 Eos # (Auto) 0.2 10^3/uL (0.0-0.7) 08/04/21 03:57 Baso # (Auto) 0.1 10^3/uL (0.0-0.1) 08/04/21 03:57 Absolute Nucleated RBC 0.00 x10^3/uL 08/04/21 03:57 Nucleated RBC % 0.0 /100WBC 08/04/21 03:57 VBG pH 7.261 (7.31-7.41) L 08/03/21 18:14 VBG pCO2 41.1 mmHg (41-51) 08/03/21 18:14 VBG pO2 29.9 mmHg (25-47) 08/03/21 18:14 VBG HCO3 18.1 mmol/L (23-28) L 08/03/21 18:14 VBG Total CO2 19.3 mmol/L (24-29) L 08/03/21 18:14 VBG O2 Saturation 52.5 % (60-80) L 08/03/21 18:14 VBG Base Excess -8.5 mmol/L (-2 - +2) L 08/03/21 18:14 Sodium 135 mmol/L (135-145) 08/04/21 03:57 Potassium 3.5 mmol/L (3.5-5.0) 08/04/21 03:57 Chloride 102 mmol/L (101-111) 08/04/21 03:57 Carbon Dioxide 19 mmol/L (21-32) L 08/04/21 03:57 Anion Gap 14.0 (6-13) H 08/04/21 03:57 BUN 18 mg/dL (6-20) 08/04/21 03:57 Creatinine 1.0 mg/dL (0.6-1.2) 08/04/21 03:57 Estimated GFR (MDRD) 112 (>89) 08/04/21 03:57 Glucose 163 mg/dL (70-100) H 08/04/21 03:57 POC Whole Bld Glucose 197 mg/dL (70 - 100) H 08/04/21 03:57 Estimat Average Glucose 298 mg/dL (70-100) H 08/03/21 14:16 Hemoglobin A1c % 12.0 % (4.27-6.07) H 08/03/21 14:16 Calcium 8.7 mg/dL (8.5-10.3) 08/04/21 03:57 Phosphorus 1.8 mg/dL (2.5-4.6) L 08/04/21 01:27 Magnesium 2.1 mg/dL (1.7-2.8) 08/04/21 01:27 Total Bilirubin 0.9 mg/dL (0.2-1.0) 08/03/21 14:16 AST 49 IU/L (10-42) H 08/03/21 14:16 ALT 117 IU/L (10-60) H 08/03/21 14:16 Alkaline Phosphatase 122 IU/L (42-121) H 08/03/21 14:16 Troponin I High Sens 6.8 ng/L (2.3-19.7) 08/03/21 14:16 B-Natriuretic Peptide 24 pg/mL (5-100) 08/03/21 14:16 Total Protein 8.8 g/dL (6.7-8.2) H 08/03/21 14:16 Albumin 4.9 g/dL (3.2-5.5) 08/03/21 14:16 Globulin 3.9 g/dL (2.1-4.2) 08/03/21 14:16 Albumin/Globulin Ratio 1.3 (1.0-2.2) 08/03/21 14:16 Triglycerides 515 mg/dL (-149) H 08/04/21 03:57 Cholesterol 289 mg/dL (-199) H 08/04/21 03:57 LDL Cholesterol, Calc Not Reportable 08/04/21 03:57 VLDL Cholesterol Not Reportable 08/04/21 03:57 HDL Cholesterol 28 mg/dL (60-) L 08/04/21 03:57 LDL/HDL Ratio Not Reportable 08/04/21 03:57 Cholesterol/HDL Ratio 10.3 (<5.0) 08/04/21 03:57 Lipase 46 U/L (22-51) 08/03/21 14:16 TSH 5.34 uIU/mL (0.34-5.60) 08/03/21 19:00 Urine Color YELLOW 08/03/21 15:30 Urine Clarity CLEAR (CLEAR) 08/03/21 15:30 Urine pH 5.5 PH (5.0-7.5) 08/03/21 15:30 Ur Specific [place] 1.010 (1.002-1.030) 08/03/21 15:30 Urine Protein 30 mg/dL (NEGATIVE) H 08/03/21 15:30 Urine Glucose (UA) >=1000 mg/dL (NEGATIVE) H 08/03/21 15:30 Urine Ketones 15 mg/dL (NEGATIVE) H 08/03/21 15:30 Urine Occult Blood MODERATE (NEGATIVE) H 08/03/21 15:30 Urine Nitrite NEGATIVE (NEGATIVE) 08/03/21 15:30 Urine Bilirubin NEGATIVE (NEGATIVE) 08/03/21 15:30 Urine Urobilinogen 0.2 (NORMAL) E.U./dL (NORMAL) 08/03/21 15:30 Ur Leukocyte Esterase NEGATIVE (NEGATIVE) 08/03/21 15:30 Urine RBC 0-5 /HPF (0-5) 08/03/21 15:30 Urine WBC 0-3 /HPF (0-3) 08/03/21 15:30 Ur Squamous Epith Cells NONE SEEN (<= Few) 08/03/21 15:30 Urine Bacteria None Seen /HPF (None Seen) 08/03/21 15:30 Ur Microscopic Review INDICATED 08/03/21 15:30 Urine Culture Comments NOT INDICATED 08/03/21 15:30 Nasal Adenovirus (PCR) NOT DETECTED 08/03/21 16:30 Nasal B. parapertussis DNA (PCR) NOT DETECTED 08/03/21 16:30 Nasal Coronavir 229E PCR NOT DETECTED 08/03/21 16:30 Nasal Coronavir HKU1 PCR NOT DETECTED 08/03/21 16:30 Nasal Coronavir NL63 PCR NOT DETECTED 08/03/21 16:30 Nasal Coronavir OC43 PCR NOT DETECTED 08/03/21 16:30 Nasal Enterovir/Rhinovir PCR NOT DETECTED 08/03/21 16:30 Nasal Influenza B PCR NOT DETECTED 08/03/21 16:30 Nasal Influenza A PCR NOT DETECTED 08/03/21 16:30 Nasal Parainfluen 1 PCR NOT DETECTED 08/03/21 16:30 Nasal Parainfluen 2 PCR NOT DETECTED 08/03/21 16:30 Nasal Parainfluen 3 PCR NOT DETECTED 08/03/21 16:30 Nasal Parainfluen 4 PCR NOT DETECTED 08/03/21 16:30 Nasal RSV (PCR) NOT DETECTED 08/03/21 16:30 Nasal Screen MRSA (PCR) NEGATIVE (NEGATIVE) 08/03/21 18:45 Nasal B.pertussis DNA PCR NOT DETECTED 08/03/21 16:30 Nasal C.pneumoniae (PCR) NOT DETECTED 08/03/21 16:30 Hernandez Human Metapneumo PCR NOT DETECTED 08/03/21 16:30 Nasal M.pneumoniae (PCR) NOT DETECTED 08/03/21 16:30 Nasal SARS-CoV-2 (PCR) NOT DETECTED 08/03/21 16:30 Urine Opiates Screen NEGATIVE (NEGATIVE) 08/03/21 15:30 Ur Oxycodone Screen NEGATIVE (NEGATIVE) 08/03/21 15:30 Urine Methadone Screen NEGATIVE (NEGATIVE) 08/03/21 15:30 Ur Propoxyphene Screen NEGATIVE (NEGATIVE) 08/03/21 15:30 Ur Barbiturates Screen NEGATIVE (NEGATIVE) 08/03/21 15:30 Ur Tricyclics Screen NEGATIVE (NEGATIVE) 08/03/21 15:30 Ur Phencyclidine Scrn NEGATIVE (NEGATIVE) 08/03/21 15:30 Ur Amphetamine Screen NEGATIVE (NEGATIVE) 08/03/21 15:30 U Methamphetamines Scrn NEGATIVE (NEGATIVE) 08/03/21 15:30 U Benzodiazepines Scrn NEGATIVE (NEGATIVE) 08/03/21 15:30 Urine Cocaine Screen NEGATIVE (NEGATIVE) 08/03/21 15:30 U Cannabinoids Screen NEGATIVE (NEGATIVE) 08/03/21 15:30 Ethyl Alcohol < 5.0 mg/dL 08/03/21 16:23 Serum Ketones NEGATIVE (NEGATIVE) 08/03/21 19:18 Time: 40 minutes which included following up on laboratories, writing orders including transferring the patient to medical floor and transitioning from insulin drip, discussing daily plan of care with the patient. Level 3 follow-up
[2021-08-04 05:52] LABS: LDL CHOLESTEROL,DIRECT 153 mg/dL; LDLD/HDL RATIO 5.5 (<3.6)
[2021-08-04] MEDS ORDERED: INSULIN GLARGINE 300 UNIT/3 ML PEN SUBQ SCH ×2 (06:00→21:00)
[2021-08-04] MEDS ORDERED: INSULIN REGULAR HUMAN 300 UNIT/3 ML VIAL SUBQ ONE (07:00)
[2021-08-04] MEDS: INSULIN ASPART 300 UNIT/3 ML PEN SUBQ SCH ×4 (08:23→21:01)
[2021-08-04] MEDS: amLODIPine 5 MG TABLET PO SCH (08:26)
[2021-08-04] MEDS: ASPIRIN EC 81 MG TABLET PO SCH (08:26)
[2021-08-04] MEDS: ENOXAPARIN 40 MG/0.4 ML SYRINGE SUBQ SCH (08:26)
[2021-08-04] MEDS: FAMOTIDINE 20 MG/2 ML VIAL IVP SCH (08:27)
[2021-08-04 10:27] LABS: ESTIMATED AVERAGE GLUCOSE 306 mg/dL (70-100); HEMOGLOBIN A1c% 12.3 % (4.27-6.07)
--- NOTE | 2021-08-04 11:56 | PHARMACY PROGRESS NOTE ---
- Best Possible Medication History Admit Date and Time: 08/03/21 1602 Processed by: Pharmacy Medication History completed: Yes Patient Interview: Completed (PATIENT REPORTS HE ONLY TAKES LISINOPRIL AT HOME) As the person ultimately responsible for medication therapy, providers are able to order a medication from an existing home medication list in [facility] via the "Reconcile Routine" prior to Confirmation of that medication by sales support manager. Such practice is discouraged except when the physician, in their clinical judgment, deems that a medical need exists for a medication without regard to previous use.
[2021-08-04] MEDS: FENOFIBRATE 48 MG TABLET PO SCH (12:55)
[2021-08-04] MEDS ORDERED: INSULIN ASPART 300 UNIT/3 ML PEN SUBQ SCH (17:00)
[2021-08-04] MEDS: ATORVASTATIN 40 MG TABLET PO SCH (21:00)
[2021-08-04] MEDS ORDERED: INSULIN REGULAR HUMAN 300 UNIT/3 ML VIAL IVP ONE (22:13)
[2021-08-04] MEDS ORDERED: SODIUM CHLORIDE 0.9% 500 ML IV ONE (22:14)
[2021-08-05 06:17] LABS: CALCIUM 9.1 mg/dL (8.5-10.3); POTASSIUM 3.2 mmol/L (3.5-5.0)
--- NOTE | 2021-08-05 07:51 | PROVIDER PROGRESS NOTE ---
Subjective - Prog Note Date Prog Note Date: 08/05/21 - Subjective Pt reports feeling: Improved Subjective: Off insulin drip and on med surg and on lantus bid pluse 5 units short acting w meals plus SS. Yesterday his glucose started at 191 and by 9 PM was 348 off the drip. At midnight 241. This morning he is 288. His potassium is low, and anion gap is going back up again. He has no IV fluids running. Tolerating his diet. Current Medications - Current Medications Current Medications: Active Medications Acetaminophen (Acetaminophen 325 Mg Tablet) 650 mg PO Q4HR PRN PRN Reason: Pain 1 to 4 Amlodipine Besylate (Amlodipine 5 Mg Tablet) 5 mg PO DAILY [facility] Last Admin: 08/04/21 08:26 Dose: 5 mg Documented by: Aspirin (Aspirin Ec 81 Mg Tablet) 81 mg PO DAILY [facility] Last Admin: 08/04/21 08:26 Dose: 81 mg Documented by: Atorvastatin Calcium (Atorvastatin 40 Mg Tablet) 40 mg PO QPM [facility] Last Admin: 08/04/21 21:00 Dose: 40 mg Documented by: Enoxaparin Sodium (Enoxaparin 40 Mg/0.4 Ml Syringe) 40 mg SUBQ DAILY [facility] Last Admin: 08/04/21 08:26 Dose: 40 mg Documented by: Fenofibrate (Fenofibrate 48 Mg Tablet) 144 mg PO DAILY [facility] Last Admin: 08/04/21 12:55 Dose: 144 mg Documented by: Sodium Chloride (Normal Saline 0.9%) 500 mls @ 20 mls/hr IV Q24H PRN PRN Reason: TKO RATE Insulin Aspart (Insulin Aspart 300 Unit/3 Ml Pen) 5 unit SUBQ TIDWM [facility]; Protocol Last Admin: 08/04/21 17:04 Dose: 5 unit Documented by: Insulin Aspart (Insulin Aspart 300 Unit/3 Ml Pen) 2 - 10 unit SUBQ 0800,1200,1700,2100 [facility]; Protocol Last Admin: 08/04/21 21:01 Dose: 10 unit Documented by: Insulin Glargine (Insulin Glargine 300 Unit/3 Ml Pen) 30 unit SUBQ BID [facility] Last Admin: 08/04/21 21:03 Dose: 30 unit Documented by: Ondansetron HCl (Ondansetron Odt 4 Mg Tablet) 4 mg TL Q6HR PRN PRN Reason: Nausea / Vomiting Prochlorperazine Edisylate (Prochlorperazine 10 Mg/2 Ml Vial) 10 mg IVP Q6HR PRN PRN Reason: Nausea / Vomiting Sodium Chloride (Sodium Chloride Flush 0.9% 10 Ml Syringe) 10 ml IVP 0100,0900,1700 [facility] Last Admin: 08/04/21 23:56 Dose: 10 ml Documented by: Sodium Chloride (Sodium Chloride Flush 0.9% 10 Ml Syringe) 10 ml IVP PRN PRN PRN Reason: NEEDED PER PROVIDER ORDERS Lisinopril [Zestril] 10 mg PO DAILY 08/04/21 Objective - Vital Signs/Intake & Output Reviewed Vital Signs: Yes Vital Signs: Vital Signs x48h Temp Pulse Resp BP BP Pulse Ox 08/05/21 07:41 36.7 C 97 20 141/86 H 97 08/05/21 05:06 36.4 C L 87 20 132/78 H 98 Intake & Output: Intake & Output 08/02/21 08/03/21 08/04/21 08/05/21 23:59 23:59 23:59 23:59 Intake Total 3782.534 2866.000 800 Output Total 150 250 Balance 3632.534 2616.000 800 - Objective General Appearance: positive: Alert, Other (5'5" black male @ 110 kg, comfortable and tolerating his breakfast) Eyes Bilateral: positive: PERRL, EOMI ENT: positive: No signs of dehydration Neck: positive: No JVD. negative: Stiff neck Respiratory: positive: No respiratory distress. negative: Wheezes, Rales, Rhonchi Cardiovascular: positive: Regular rate & rhythm. negative: Gallop/S4, Friction rub Abdomen: positive: Non-tender, No organomegaly, Nml bowel sounds, No distention Skin: positive: Warm, Dry Extremities: positive: Full ROM, No pedal edema Neurologic/Psychiatric: positive: Oriented x3, CN's nml (2-12), Motor nml, Sensation nml - Lab Results Fish Bones: 08/04/21 03:57 08/05/21 05:49 Other Labs: Lab Results x24hrs 08/05/21 08/05/21 08/04/21 Range/Units 07:32 05:49 23:54 Sodium 133 L (135-145) mmol/L Potassium 3.2 L (3.5-5.0) mmol/L Chloride 99 L (101-111) mmol/L Carbon Dioxide 18 L (21-32) mmol/L Anion Gap 16.0 H (6-13) BUN 13 (6-20) mg/dL Creatinine 1.0 (0.6-1.2) mg/dL Estimated GFR (MDRD) 112 (>89) Glucose 248 H (70-100) mg/dL POC Whole Bld Glucose 288 H 241 H (70 - 100) mg/dL Estimat Average Glucose (70-100) mg/dL Hemoglobin A1c % (4.27-6.07) % Calcium 9.1 (8.5-10.3) mg/dL 08/04/21 08/04/21 08/04/21 Range/Units 20:43 16:53 11:24 Sodium (135-145) mmol/L Potassium (3.5-5.0) mmol/L Chloride (101-111) mmol/L Carbon Dioxide (21-32) mmol/L Anion Gap (6-13) BUN (6-20) mg/dL Creatinine (0.6-1.2) mg/dL Estimated GFR (MDRD) (>89) Glucose (70-100) mg/dL POC Whole Bld Glucose 348 H 325 H 283 H (70 - 100) mg/dL Estimat Average Glucose (70-100) mg/dL Hemoglobin A1c % (4.27-6.07) % Calcium (8.5-10.3) mg/dL 08/04/21 Range/Units 03:57 Sodium (135-145) mmol/L Potassium (3.5-5.0) mmol/L Chloride (101-111) mmol/L Carbon Dioxide (21-32) mmol/L Anion Gap (6-13) BUN (6-20) mg/dL Creatinine (0.6-1.2) mg/dL Estimated GFR (MDRD) (>89) Glucose (70-100) mg/dL POC Whole Bld Glucose (70 - 100) mg/dL Estimat Average Glucose 306 H (70-100) mg/dL Hemoglobin A1c % 12.3 H (4.27-6.07) % Calcium (8.5-10.3) mg/dL ABX Reporting Has patient been on IV antibiotics over the past 48 hours?: No Assessment/Plan - Problem List (1) Diabetic ketoacidosis Impression: Not completely resolved. Anion gap is going back up again. Plan: Increase Lantus to 35 units twice daily and I initially increased his nutritional dosing to 7 units and will increase it to 10 units Start diabetic education. 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 Right now he needs potassium supplementation. Plan: Potassium riders Recheck potassium in the morning (3) HTN (hypertension) Impression: Continuously in the 140s systolic. At home he is on Zestril 10 mg a day. Here he has been started on Norvasc 5 mg daily and I will resume his Zestril 10 mg daily Qualifiers: Hypertension type: primary hypertension Qualified Code(s): I10 - Essential (primary) hypertension
[2021-08-05] MEDS: INSULIN ASPART 300 UNIT/3 ML PEN SUBQ SCH ×6 (08:23→21:01)
[2021-08-05] MEDS: INSULIN GLARGINE 300 UNIT/3 ML PEN SUBQ SCH ×2 (08:26→21:02)
[2021-08-05] MEDS: ASPIRIN EC 81 MG TABLET PO SCH (08:31)
[2021-08-05] MEDS: FENOFIBRATE 48 MG TABLET PO SCH (08:31)
[2021-08-05] MEDS: amLODIPine 5 MG TABLET PO SCH (08:32)
[2021-08-05] MEDS: ENOXAPARIN 40 MG/0.4 ML SYRINGE SUBQ SCH (08:33)
[2021-08-05] MEDS: SODIUM CHLORIDE FLUSH 0.9% 10 ML SYRINGE IVP SCH ×2 (08:49→17:04)
[2021-08-05] MEDS: POTASSIUM CHLOR 10 MEQ/100 ML 10 MEQ/100 ML BAG IV SCH ×6 (08:49→15:11)
[2021-08-05] MEDS ORDERED: INSULIN ASPART 300 UNIT/3 ML PEN SUBQ SCH ×2 (08:57→12:00)
[2021-08-05] MEDS: ATORVASTATIN 40 MG TABLET PO SCH (20:59)
[2021-08-06] MEDS: SODIUM CHLORIDE FLUSH 0.9% 10 ML SYRINGE IVP SCH ×3 (01:01→17:05)
--- NOTE | 2021-08-06 07:31 | PROVIDER PROGRESS NOTE ---
Subjective - Prog Note Date Prog Note Date: 08/06/21 Prog Note Time: 07:30 - Subjective Pt reports feeling: Improved Subjective: Off insulin drip since the morning of August 05. Lantus 35 units twice daily +10 units short acting insulin with meals plus sliding scale with meals. Yesterday his anion gap was going up. I increase his Lantus and short acting insulin with meals. His glucose was 288, 296, 204 and 180 yesterday. This morning he is 183. He denies chest pain, shortness of breath. States that he is already giving himself insulin and checking his sugar after instruction from nursing's. Has met with nutrition of service for 30 minutes yesterday. Current Medications - Current Medications Current Medications: Active Medications Acetaminophen (Acetaminophen 325 Mg Tablet) 650 mg PO Q4HR PRN PRN Reason: Pain 1 to 4 Amlodipine Besylate (Amlodipine 5 Mg Tablet) 5 mg PO DAILY [facility] Last Admin: 08/05/21 08:32 Dose: 5 mg Documented by: Aspirin (Aspirin Ec 81 Mg Tablet) 81 mg PO DAILY [facility] Last Admin: 08/05/21 08:31 Dose: 81 mg Documented by: Atorvastatin Calcium (Atorvastatin 40 Mg Tablet) 40 mg PO QPM [facility] Last Admin: 08/05/21 20:59 Dose: 40 mg Documented by: Enoxaparin Sodium (Enoxaparin 40 Mg/0.4 Ml Syringe) 40 mg SUBQ DAILY [facility] Last Admin: 08/05/21 08:33 Dose: 40 mg Documented by: Fenofibrate (Fenofibrate 48 Mg Tablet) 144 mg PO DAILY [facility] Last Admin: 08/05/21 08:31 Dose: 144 mg Documented by: Sodium Chloride (Normal Saline 0.9%) 500 mls @ 20 mls/hr IV Q24H PRN PRN Reason: TKO RATE Insulin Aspart (Insulin Aspart 300 Unit/3 Ml Pen) 2 - 10 unit SUBQ 0800,1200,1700,2100 [facility]; Protocol Last Admin: 08/05/21 21:01 Dose: 2 unit Documented by: Insulin Aspart (Insulin Aspart 300 Unit/3 Ml Pen) 10 unit SUBQ TIDWM [facility]; Protocol Last Admin: 08/05/21 17:04 Dose: 10 unit Documented by: Insulin Aspart (Insulin Aspart 300 Unit/3 Ml Pen) 12 unit SUBQ TIDWM [facility] Insulin Glargine (Insulin Glargine 300 Unit/3 Ml Pen) 35 unit SUBQ BID [facility] Last Admin: 08/05/21 21:02 Dose: 35 unit Documented by: Ondansetron HCl (Ondansetron Odt 4 Mg Tablet) 4 mg TL Q6HR PRN PRN Reason: Nausea / Vomiting Prochlorperazine Edisylate (Prochlorperazine 10 Mg/2 Ml Vial) 10 mg IVP Q6HR PRN PRN Reason: Nausea / Vomiting Sodium Chloride (Sodium Chloride Flush 0.9% 10 Ml Syringe) 10 ml IVP 01 00,0900,1700 [facility] Last Admin: 08/06/21 01:01 Dose: 10 ml Documented by: Sodium Chloride (Sodium Chloride Flush 0.9% 10 Ml Syringe) 10 ml IVP PRN PRN PRN Reason: NEEDED PER PROVIDER ORDERS Lisinopril [Zestril] 10 mg PO DAILY 08/04/21 Objective - Vital Signs/Intake & Output Reviewed Vital Signs: Yes Intake & Output: Intake & Output 08/03/21 08/04/21 08/05/21 08/06/21 23:59 23:59 23:59 23:59 Intake Total 3782.534 2866.000 2231.25 300 Output Total 150 250 Balance 3632.534 2616.000 2231.25 300 - Objective General Appearance: positive: No acute distress, Alert, Other (5 foot 5 inch black male who weighs 108.5 kg, alert, watching TV was remote in his hand) Eyes Bilateral: positive: PERRL, EOMI Neck: positive: No JVD. negative: Lymphadenopathy (R), Lymphadenopathy (L), Stiff neck Respiratory: positive: No respiratory distress. negative: Wheezes, Rales, Rh onchi Cardiovascular: positive: Regular rate & rhythm. negative: Gallop/S4, Friction rub Abdomen: positive: Non-tender, No organomegaly, Nml bowel sounds, No distention Skin: positive: Warm, Dry Extremities: positive: Non-tender, No pedal edema Neurologic/Psychiatric: positive: Oriented x3, CN's nml (2-12), Motor nml - Lab Results Fish Bones: 08/04/21 03:57 08/06/21 07:47 Other Labs: Lab Results x24hrs 08/06/21 08/05/21 08/05/21 Range/Units 06:58 21:00 16:33 POC Whole Bld Glucose 183 H 180 H 204 H (70 - 100) mg/dL 08/05/21 08/05/21 Range/Units 11:42 07:32 POC Whole Bld Glucose 296 H 288 H (70 - 100) mg/dL Assessment/Plan - Problem List (1) Diabetic ketoacidosis Impression: Anion gap was coming up again. I increased his nutritional insulin as well as Lantus. This morning his anion gap is closed again at 13. However he is hypokalemic. Plan: Acceptable technique with checking his sugar and giving himself insulin as well as carb calculations today. Once he does that he could probably go home tomorrow morning. He will need to follow-up with primary care provider at the [employer] [employer]. Continue with diabetic education. 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 More potassium needed 08/05 am and today. Plan: 40 meq po tid for 4 doses. (3) HTN (hypertension) Impression: Continuously in the 140s systolic. At home he is on Zestril 10 mg a day. Here he has been started on Norvasc 5 mg daily and I resumed his Zestril 10 mg daily on 08/05 Today his BP is still 140s but that can be managed in outpatient setting w PCP. When he goes home, Zestril 20 mg and amlodipine 5 mg. Qualifiers: Hypertension type: primary hypertension Qualified Code(s): I10 - Essential (primary) hypertension Qualifiers: Qualified Code(s): E10.10 - Type 1 diabetes mellitus with ketoacidosis without coma
[2021-08-06] MEDS: INSULIN GLARGINE 300 UNIT/3 ML PEN SUBQ SCH ×2 (08:02→21:26)
[2021-08-06] MEDS: INSULIN ASPART 300 UNIT/3 ML PEN SUBQ SCH ×7 (08:02→21:23)
[2021-08-06] MEDS: FENOFIBRATE 48 MG TABLET PO SCH (08:08)
[2021-08-06] MEDS: ENOXAPARIN 40 MG/0.4 ML SYRINGE SUBQ SCH (08:09)
[2021-08-06] MEDS: ASPIRIN EC 81 MG TABLET PO SCH (08:09)
[2021-08-06] MEDS: amLODIPine 5 MG TABLET PO SCH (08:09)
[2021-08-06 08:33] LABS: CALCIUM 9.3 mg/dL (8.5-10.3); CREATININE 0.8 mg/dL (0.6-1.2); POTASSIUM 2.8 mmol/L (3.5-5.0)
[2021-08-06] MEDS: POTASSIUM CHLORIDE 20 MEQ TABLET PO SCH ×2 (14:26→21:18)
[2021-08-06] MEDS: ATORVASTATIN 40 MG TABLET PO SCH (21:19)
[2021-08-07] MEDS: SODIUM CHLORIDE FLUSH 0.9% 10 ML SYRINGE IVP SCH ×4 (01:10→23:51)
[2021-08-07] MEDS: POTASSIUM CHLORIDE 20 MEQ TABLET PO SCH ×2 (05:33→13:56)
[2021-08-07 07:38] LABS: CREATININE 0.8 mg/dL (0.6-1.2); POTASSIUM 3.5 mmol/L (3.5-5.0)
[2021-08-07] MEDS: INSULIN ASPART 300 UNIT/3 ML PEN SUBQ SCH ×7 (08:00→20:51)
[2021-08-07] MEDS: INSULIN GLARGINE 300 UNIT/3 ML PEN SUBQ SCH ×3 (08:04→20:53)
[2021-08-07] MEDS: FENOFIBRATE 48 MG TABLET PO SCH (09:08)
[2021-08-07] MEDS: ENOXAPARIN 40 MG/0.4 ML SYRINGE SUBQ SCH (09:09)
[2021-08-07] MEDS: amLODIPine 5 MG TABLET PO SCH (09:09)
[2021-08-07] MEDS: ASPIRIN EC 81 MG TABLET PO SCH (09:12)
--- NOTE | 2021-08-07 15:13 | PROVIDER PROGRESS NOTE ---
Subjective - Prog Note Date Prog Note Date: 08/07/21 Prog Note Time: 15:11 - Subjective Subjective: He is giving himself his insulin. Checking his sugars, and able to do the injections. His main concern is calculating carbs. He gets confused. Otherwis e no complaints. No chest pain, palpitations, shortness of breath. States he is walking around the room, ambulating without assistance. Current Medications - Current Medications Current Medications: Active Medications Acetaminophen (Acetaminophen 325 Mg Tablet) 650 mg PO Q4HR PRN PRN Reason: Pain 1 to 4 Alcohol (Ethyl Alcohol 62% Swab Ampule) 1 amp MARY BID [facility] Amlodipine Besylate (Amlodipine 5 Mg Tablet) 5 mg PO DAILY [facility] Last Admin: 08/07/21 09:09 Dose: 5 mg Documented by: Aspirin (Aspirin Ec 81 Mg Tablet) 81 mg PO DAILY [facility] Last Admin: 08/07/21 09:12 Dose: 81 mg Documented by: Atorvastatin Calcium (Atorvastatin 40 Mg Tablet) 40 mg PO QPM [facility] Last Admin: 08/06/21 21:19 Dose: 40 mg Documented by: Enoxaparin Sodium (Enoxaparin 40 Mg/0.4 Ml Syringe) 40 mg SUBQ DAILY [facility] Last Admin: 08/07/21 09:09 Dose: 40 mg Documented by: Fenofibrate (Fenofibrate 48 Mg Tablet) 144 mg PO DAILY [facility] Last Admin: 08/07/21 09:08 Dose: 144 mg Documented by: Sodium Chloride (Normal Saline 0.9%) 500 mls @ 20 mls/hr IV Q24H PRN PRN Reason: TKO RATE Insulin Aspart (Insulin Aspart 300 Unit/3 Ml Pen) 2 - 10 unit SUBQ 0800,1200,1700,2100 [facility]; Protocol Last Admin: 08/07/21 12:02 Dose: 6 unit Documented by: Insulin Aspart (Insulin Aspart 300 Unit/3 Ml Pen) 15 unit SUBQ TIDWM [facility] Insulin Glargine (Insulin Glargine 300 Unit/3 Ml Pen) 45 unit SUBQ BID [facility] Ondansetron HCl (Ondansetron Odt 4 Mg Tablet) 4 mg TL Q6HR PRN PRN Reason: Nausea / Vomiting Prochlorperazine Edisylate (Prochlorperazine 10 Mg/2 Ml Vial) 10 mg IVP Q6HR PRN PRN Reason: Nausea / Vomiting Sodium Chloride (Sodium Chloride Flush 0.9% 10 Ml Syringe) 10 ml IVP 0100,0900,1700 [facility] Last Admin: 08/07/21 01:16 Dose: 10 ml Documented by: Sodium Chloride (Sodium Chloride Flush 0.9% 10 Ml Syringe) 10 ml IVP PRN PRN PRN Reason: NEEDED PER PROVIDER ORDERS Lisinopril [Zestril] 10 mg PO DAILY 08/04/21 Objective - Vital Signs/Intake & Output Reviewed Vital Signs: Yes Vital Signs: Vital Signs x48h Temp Pulse Resp BP Pulse Ox 08/07/21 07:35 36.5 C 103 H 16 137/73 H 97 Intake & Output: Intake & Output 08/04/21 08/05/21 08/06/21 08/07/21 23:59 23:59 23:59 23:59 Intake Total 2866.000 2231.25 1750 240 Output Total 250 Balance 2616.000 2231.25 1750 240 - Objective General Appearance: positive: No acute distress, Alert Eyes Bilateral: positive: PERRL ENT: positive: No signs of dehydration Neck: positive: No JVD. negative: Stiff neck Respiratory: positive: No respiratory distress. negative: Wheezes, Rales, Rhonchi Cardiovascular: positive: Regular rate & rhythm. negative: Gallop/S4, Friction rub Abdomen: positive: Non-tender, No organomegaly, Nml bowel sounds, No distention Skin: positive: Warm, Dry Extremities: positive: Full ROM, No pedal edema Neurologic/Psychiatric: positive: Oriented x3, CN's nml (2-12), Motor nml, Sensation nml - Lab Results Fish Bones: 08/04/21 03:57 08/07/21 07:24 Other Labs: Lab Results x24hrs 08/07/21 08/07/21 08/07/21 Range/Units 11:07 07:30 07:24 Sodium 133 L (135-145) mmol/L Potassium 3.5 (3.5-5.0) mmol/L Chloride 97 L (101-111) mmol/L Carbon Dioxide 24 (21-32) mmol/L Anion Gap 12.0 (6-13) BUN 10 (6-20) mg/dL Creatinine 0.8 (0.6-1.2) mg/dL Estimated GFR (MDRD) 145 (>89) Glucose 227 H (70-100) mg/dL POC Whole Bld Glucose 245 H 244 H (70 - 100) mg/dL Calcium 9.0 (8.5-10.3) mg/dL Magnesium 2.0 (1.7-2.8) mg/dL 08/06/21 08/06/21 Range/Units 21:13 17:03 Sodium (135-145) mmol/L Potassium (3.5-5.0) mmol/L Chloride (101-111) mmol/L Carbon Dioxide (21-32) mmol/L Anion Gap (6-13) BUN (6-20) mg/dL Creatinine (0.6-1.2) mg/dL Estimated GFR (MDRD) (>89) Glucose (70-100) mg/dL POC Whole Bld Glucose 230 H 312 H (70 - 100) mg/dL Calcium (8.5-10.3) mg/dL Magnesium (1.7-2.8) mg/dL Assessment/Plan - Problem List (1) Uncontrolled type 1 diabetes mellitus Impression: Placed on an insulin drip for DKA, then sent to [facility]. He came off of the drip and in the first few hours he is anion gap came back up again. I steadily increase his Lantus and short acting insulin before meals and the anion gap closed again. I been steadily increasing it on a daily basis. Increasing both Lantus and NovoLog. Today he is consistently in the mid 200 range. Plan: Increase Lantus to 45 units twice daily and increase the fixed dose short acting before meals to 15 from 12. Continue sliding scale. Plan on discharge calos rrow. All of his prescriptions were called into the DOD at the [email or web address] [facility] for him to [facility]erry pick[facility] tomorrow. He is get a be checking in with his primary care provider immediately. (2) Electrolyte abnormality Impression: He had phosphorus, magnesium and potassium supplementation while in the ICU. More potassium needed 08/05 am and 08/06. Normal today. Plan: continue to monitor (3) HTN (hypertension) Impression: Continuously in the 140s systolic. At home he is on Zestril 10 mg a day. Here he has been started on Norvasc 5 mg daily and I resumed his Zestril 10 mg daily on 08/05. Today his systolic is in the 130s. He will go home on Norvasc and Zestril. Qualifiers: Hypertension type: primary hypertension Qualified Code(s): I10 - Essential (primary) hypertension
[2021-08-07] MEDS: ATORVASTATIN 40 MG TABLET PO SCH (20:51)
[2021-08-07] MEDS: ethyl alcohoL 62% SWAB AMPULE NAS SCH (20:51)
[2021-08-08] MEDS: INSULIN GLARGINE 300 UNIT/3 ML PEN SUBQ SCH (08:44)
[2021-08-08] MEDS: INSULIN ASPART 300 UNIT/3 ML PEN SUBQ SCH ×4 (08:50→11:33)
[2021-08-08] MEDS: amLODIPine 5 MG TABLET PO SCH (08:53)
[2021-08-08] MEDS: FENOFIBRATE 48 MG TABLET PO SCH (08:53)
[2021-08-08] MEDS: ASPIRIN EC 81 MG TABLET PO SCH (08:53)
[2021-08-08] MEDS: ethyl alcohoL 62% SWAB AMPULE NAS SCH (08:55)
[2021-08-08] MEDS: ENOXAPARIN 40 MG/0.4 ML SYRINGE SUBQ SCH (08:55)
--- NOTE | 2021-08-08 12:22 | Discharge Plan ---
Discharge Plan Problem Reviewed?: Yes Disposition: Home, Self Care Condition: Good Prescriptions: Blood-Glucose Meter [Glucometer] 1 each DAILY #1 each Blood Sugar Diagnostic [Glucometer Strips] 1 each ACHS #1 bottle Lancets 1 each ACHS #1 bottle Insulin Glargine [Lantus Solostar] 45 unit SQ BID #9 amp Insulin Aspart [Novolog Flexpen] 15 unit SQ ACHS #5 amp Diet: Diabetic Activity Restrictions: Activity as Tolerated Shower Restrictions: No Driving Restrictions: No Instruction Topics: Diabetes Heart Disease, Diabetes Alf Complications, Insulin Types, Diabetes Healthy Meals, Diabetes Carbs, Diabetes Eating Out, DKA Prevent Ch, Diabetes Dx Health Concerns: You were last seen in our emergency room July 16 when you seem to have a reaction to dental anesthesia. With that visit we found you to have a sugar of over 300. You were seen in your [place] [facility] for follow-up and you were started on lisinopril for blood pressure but unfortunately no one addressed the glucose that was high. You came back to our emergency room on August 03 complaining of generalized weakness and fatigue. You were started to get short of breath with just simple activity. It was hard to walk and do anything. You were thirsty all the time, drinking a gallon of water, and had lost weight. You lost about 20 pounds in 2 weeks. We found you to be with diabetic ketoacidosis. Diabetes is a new diagnosis for you. In addition to the diabetes we also found you to have a very high triglyceride level. Normal triglycerides are less than 149 and your 515. Your cholesterol is high at 289, bad cholesterol is high at 153, and good cholesterol is too low at 28. Plan of Treatment: 1. You were started on an insulin drip to bring down your glucose. Eventually your potassium, phosphorus, magnesium, glucose, and acid levels all balanced out. You were transitioned over to long-acting insulin twice a day, and short acting insulin before meals. 2. You have been given diabetic education and are now comfortable with checking your own sugar, and giving yourself insulin. You are being discharged on Lantus 45 units twice a day, and NovoLog short acting before meals and at bedtime. Do not give yourself bedtime insulin unless your sugar is over 200. 3. Please see your primary care provider when you get to the [facility]. They then in turn need to refer you to a nurses educator. 4. Please make sure you take your blood pressure pill. We have not changed that dose. 5. You lost weight because of the diabetes causing you to urinate excessively. However we would encourage you to continue to lose weight. If you can lose weight you would need less and less insulin. You also need to be started on cholesterol medications. Your cholesterol and triglycerides are too high. This may be part of a diabetic/metabolic disorder that your doctor needs to treat. Care Goals: To lose weight To have your diabetes under control and have a glycosylated hemoglobin of less than 7%. With us during this admission your glycosylated hemoglobin was 12.3%. 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 Call for help. Follow-up with: MENDOZA BEARD MD [Primary Care Provider] -
--- NOTE | 2021-08-08 12:33 | DISCHARGE SUMMARY ---
Discharge Summary Admit Date: 08/03/21 Discharge Date: 08/08/21 Discharging Provider: Amanda Baeza MD Primary Care Provider: Len Huerta MD Code Status: Attempt Resuscitation Condition at Discharge: Good Discharge Disposition: 01 Home, Self Care - DIAGNOSES Discharge Diagnoses with Status of Each Condition: 1. Uncontrolled type 1 diabetes mellitus 2. Type I DKA 3. Electrolyte abnormalities 4. Hypertension 5. Morbid obesity 6. Combined dyslipidemia 7. Dehydration 8. Elevated liver enzymes - HPI History of Present Illness: Mr. Coronel is a 21-year-old black male with no significant past medical hi story except for recently diagnosed hypertension. He had an ER visit on July 16, 2021 at which time he was seen for palpitations and was evaluated for abnormal EKG. The context was that he had a dental procedure, in the office he was found hypertensive and tachycardic, therefore he was sent to the ER for evaluation. At the ER his EKG had nonspecific changes, not suggestive of cardiac ischemia. He however was found tachycardic therefore was given metoprolol and for the presumed diagnosis of pericarditis he was also given NSAID. Was recommended close outpatient follow-up and cardiDuring that visit blood glucose was around 300 but there was no other significant laboratory abnormality. Subsequently the patient followed up at the [facility]; for hypertension he was started on lisinopril. No further work-up, lab work or cardiac testing was ordered or planned. The patient presented back to the ER on the morning of August 03 complaining of generalized weakness/fatigue to the point that he had difficulty ambulating, developed dyspnea on exertion. He reported being thirsty all the time and drinking at least a gallon of water; he also complained of polyuria and weight loss. He lost about 20 pounds during the past 2 weeks. Occasionally he was nauseous and had a few episodes of emesis. At the ER he was found tachycardic and hypertensive. Work-up was consistent with severe hyperglycemia and diabetic ketoacidosis. Past medical history: Recently diagnosed hypertension for which lisinopril was started as outpatient - CONSULTS | PROCEDURES Procedures: 1 chest x-ray was without acute cardiopulmonary abnormality. Lungs were clear. 2. Insulin drip in ICU 3. Triglycerides 515, cholesterol 289, LDL 153, HDL 28, glycosylated hemoglobin 12.3%. TSH 5.34 - HOSPITAL COURSE Hospital Course: Patient was placed on an insulin drip with aggressive fluid hydration. D ehydration, electrolyte abnormalities resolved and glucose became better controlled. When he was taken off the insulin drip, he had an immediate increase in his anion gap. We had to aggressively hydrate in increase his Lantus and NovoLog doses quickly. On the day of discharge we have increased him to 45 units of Lantus twice a day. He is currently on NovoLog FlexPen 15 units before meals. The day before discharge, his glucose was 244, 245, 221, 204. On the day of discharge his morning glucose is 224, and lunchtime is 241. I have suggested to him that he increase his NovoLog FlexPen to 18 to 20 units before meals. He has more changes needed as he goes back to his "normal life". He will need to be seen by diabetic education. I have asked him to try and lose weight. Get his cholesterol under control. Aim for a glycosylated hemoglobin of less than 7% to avoid diabetic complications in such a young man. Blood pressure at discharge is 117/66. During his stay he was as high as 148 systolic. It was not until August 07 that his systolic came down to the 130s, and at discharge she is 117. He will be sent home on the same dosage of lisinopril. This young male has hypertension, obesity, dyslipidemia, elevated liver enzymes as well as this new diagnosis of probable type 1 diabetes. He will need extensive dietary counseling, a strong exercise program to get everything under control. At discharge temperature is 36.8. Heart rate is 97. Blood pressure 117/66. Respirations 16. 98% on room air. He is 5 foot 5 inches tall and weighs 110 kg. He is a stocky, morbidly overweight young black male in no acute distress. Very pleasant personality, and follows prompts. Neck is supple without JVD or goiter or bruit. Lungs are clear to auscultation and percussion and there is no increased respiratory effort. PMI is normally placed with a regular rate and rhythm. The abdomen is obese, soft, nontender with normal bowel sounds. Extremities are without edema. He is mobile within the room to get up to go to the bathroom, get back in bed. Normal speech patterns. Greater than 30 minutes was spent coordinating discharge. - ALLERGIES Allergies/Adverse Reactions: Allergies Allergy/AdvReac Type Severity Reaction Status Date / Time No Known Drug Allergies Allergy Verified 08/03/21 13:19 - MEDICATIONS Home Medications: Ambulatory Orders Medication Instructions Recorded Confirmed Lisinopril [Zestril] 10 mg PO DAILY 08/04/21 08/04/21 Blood Sugar Diagnostic [Glucometer 1 each ACHS #1 bottle 08/07/21 Strips] Blood-Glucose Meter [Glucometer] 1 each DAILY #1 each 08/07/21 Insulin Aspart [Novolog Flexpen] 15 unit SQ ACHS #5 amp 08/07/21 Insulin Glargine [Lantus Solostar] 45 unit SQ BID #9 amp 08/07/21 Lancets 1 each ACHS #1 bottle 08/07/21 - LABS Result Diagrams: 08/04/21 03:57 08/07/21 07:24
[2021-08-08 13:07] VITALS: BP 135/82
== END 2021-08-08 13:10 | disposition home or self-care (01) | DRG 638 ==
LOC: ED 13:13 → ICU 16:02 → MS2 08-04 09:52
PROVIDERS: ADMIT Internal Medicine; ATTEND Specialist
DX: E10.10 Type 1 diabetes mellitus with ketoacidosis without coma (principal); N17.9 Acute kidney failure, unspecified; I10 Essential (primary) hypertension; E66.01 Morbid (severe) obesity due to excess calories; E78.2 Mixed hyperlipidemia; E86.0 Dehydration; R74.8 Abnormal levels of other serum enzymes; R63.4 Abnormal weight loss; Z68.39 Body mass index [BMI] 39.0-39.9, adult; F17.290 Nicotine dependence, other tobacco product, uncomplicated; Z20.822 Contact with and (suspected) exposure to COVID-19; E87.6 Hypokalemia; R00.0 Tachycardia, unspecified; E83.39 Other disorders of phosphorus metabolism
CPT/HCPCS: 0202U; 36415; 71045; 80048; 80053; 80061; 80306; 80320; 81001; 82009; 82803; 83036; 83690; 83721; 83735; 83880; 84100; 84132; 84443; 84484; 85025; 87150; 93005; 99285; 99291; A9270; J1650; J1815; 81003; 82947; 87086